=== PATIENT | female | born 1970 | race Caucasian/White ===

== ENCOUNTER 2018-10-29 06:29 | Day surgery (SDC) | payer OTHER, SELFPAY ==
--- NOTE | 2018-10-23 14:38 | EKG12_ITS ---
Test Reason : PRE-OP Blood Pressure : / mmHG Vent. Rate : 074 BPM Atrial Rate : 074 BPM P-R Int : 160 ms QRS Dur : 092 ms QT Int : 394 ms P-R-T Axes : 026 033 030 degrees QTc Int : 437 ms Normal sinus rhythm Normal ECG Confirmed by TERE MELGOZA, JOSESITO ([id number]), editorial project manager GOLD CHAPA ([id number]) on 10/26/2018 10:18:52 AM Referred By: Erika Peng Confirmed By:JOSESITO CARRANZA MD
[2018-10-23 16:56] LABS: Hematocrit 39.4 % (37-47); Hemoglobin 12.5 g/dl (12.0-15.0); Mean Corp Hgb Conc 31.7 g/gl (32-36); Mean Corpuscular Hgb 31.3 pg (27.0-32.0); Mean Corpuscular Volume 98.5 fL (81-99); Mean Platelet Vol. 10.9 fl (6.2-12.0); Platelet Count 251 K/mm3 (150-450); RBC Distribution Width CV 12.9 % (11.6-14.6); RBC Distribution Width SD 45.9 fl (35.1-43.9); White Blood Count 7.5 K/mm3 (4.4-11.0)
[2018-10-23 17:10] LABS: AST(SGOT) 10 U/L (15-37); Alanine Aminotransfer ALT/SGPT 23 U/L (13-56); Albumin, Serum 3.7 g/dL (3.2-5.0); Alkaline Phosphatase 60 U/L (45-117); Bilirubin, Direct 0.07 mg/dL (0.00-0.30); Globulin 2.8 g/dL (2.2-4.2); Protein, Total 6.5 g/dL (6.4-8.2)
[2018-10-23 17:18] LABS: Internal QC Validated? YES +Cl - CLEAR BKGD; Pregnancy, Urine Negative Negative
[2018-10-23 17:21] LABS: International Normalized Ratio 1.1; Prothrombin Time (Protime)PT. 13.8 SECONDS (11.7-14.9)
[2018-10-23 17:22] LABS: Partial Thromboplast Time 29.7 Seconds (24.1-36.2)
[2018-10-23 18:20] LABS: Scan Indicated on CBC? Y/N NO
[2018-10-29 07:01] VITALS: BP 126/73; PULSE 77; RESP 16; TEMP 37.1; O2SAT 100; BMI 29.9
[2018-10-29] MEDS: Celecoxib 200 MG Capsule 400 MG PO (07:09)
[2018-10-29] MEDS: Phenazopyridine 95 MG Tablet 190 MG PO (07:09)
[2018-10-29] MEDS: Acetaminophen 500 MG Tablet 1000 MG PO ×2 (07:09→13:30)
[2018-10-29] MEDS: Gabapentin 600 MG Tablet PO (07:09)
[2018-10-29] MEDS: Scopolamine 1mg/72hr Patch 1 PATCH TRANSDERM. (07:10)
[2018-10-29] MEDS: Enoxaparin 40 MG/0.4 ML Syringe SC (07:10)
[2018-10-29] MEDS: Lactated Ringers 1,000 ML 40 ML IV ×2 (07:15→13:31)
[2018-10-29 07:16] LABS: Bedside Glucose 82 mg/dL (70-110)
[2018-10-29] MEDS: Magnesium Sulfate 4gm/100mL 4 GM/100 ML IV.SOLN. IV (07:16)
--- NOTE | 2018-10-29 08:45 | HYST_PTH ---
PATIENT: HELENA RENNER LOC: [facility] [place] U#:[id number] AGE/SX: 48/F ROOM: RE10/29/[address]: Dr. Erika Peng MD : [id number] BED: DIS: 10/29/2018 SPEC #: [id number] RECD: 10/29/18 11:39 STATUS: SHERIF GERARDO #: [id number] FARSHAD: 10/29/18 08:[address]: Erika Peng DEPT: SURGICAL PATHOLOGY RECD BY: Mark Gonzalez ENTERED: 10/29/18 12:26 SP TYPE: HYSTERECT OTHR DR: Dr. Herminio Nichols MD Tissues: Uterus, NOS Procedures: Surgery Specimen Level V HEADER OPERATION: ERAS, hysterectomy, lap-assisted vaginal, salpingectomy PRE-OP DIAGNOSIS: Intramural uterine fibroid, dysmenorrhea, abnormal uterine bleeding, status post endometrial ablation TISSUE SUBMITTED: Uterus and bilateral fallopian tubes MICROSCOPIC DIAGNOSIS Uterus, hysterectomy: Cervix - nabothian cysts, squamous metaplasia and mild chronic inflammation and focal hyperkeratosis. Endometrium - weakly proliferative to inactive endometrium. Myometrium - adenomyosis. Right fallopian tube - no pathologic change. Left fallopian tube - benign paratubal cyst. AM:janett 10/30/18 MICROSCOPIC DESCRIPTION Slides are reviewed. GROSS DESCRIPTION Received in fixative is one container labeled with the patient's name and designated uterus and bilateral fallopian tubes. The specimen consists of a hysterectomy specimen consisting of uterus with cervix and detached bilateral fallopian tubes. The uterus with cervix weighs 137 gm and measures 10.5 x 8 x 5 cm. The serosal surface is feldman, glistening with instrumentation lantigua. The ectocervical mucosa is unremarkable. The external os is circular in contour. The endocervical canal measures 3 cm in length and the endocervical mucosa is feldman, glistening and unremarkable. Sections of the cervix reveal two cysts filled with mucoid material. The triangular endometrial cavity measures 5 cm in length and up to 1.5 cm in width. The endometrium is feldman, glistening without any mass lesion and measures <0.1 cm in thickness. Sections of the uterine wall do not reveal any mass lesion. It measures up to 2.6 cm I thickness. The detached fallopian tubes are not identified as right or left. One of the fallopian tubes is smaller and it measures 2.5 cm in length and up to 0.6 cm in diameter. A focal, minimal fimbrial end is noted. Sections reveal unremarkable cut surfaces. The second fallopian tube measures 4 cm in length and 0.5 cm in diameter. The fimbrial end is identified. A paratubal cyst is also noted measuring 0.5 cm in diameter. Sections reveal unremarkable cut surfaces. Project Development Director sections are submitted in eight cassettes as follows: 1 - anterior cervix, 2 - posterior cervix, 3 & 4 - anterior uterine wall, 5 & 6 - posterior uterine wall, 7 - smaller fallopian tube, 8 - larger fallopian tube and paratubal cyst. / ANGELITA:janett 10/29/18 TC:5 CPT: 36928
[2018-10-29] MEDS: Bupivacaine Mpf 0.5% 30 ML VIAL (11:00)
--- NOTE | 2018-10-29 11:06 | PCM.OPRPT ---
Report of Operation Date of Procedure: 10/29/18 Pre-Operative Diagnosis: Abnormal uterine bleeding, dysmenorrhea, intramural uterine fibroid Post-Operative Diagnosis: Same Surgery/Procedure Performed:: Upper scopic assisted vaginal hysterectomy with bilateral salpingectomy and cystoscopy Description of Surgical Findings:: Enlarged boggy uterus, normal tubes with evidence of previous tubal ligation, normal-appearing ovaries bilaterally. Ureteral duplication noted. clinique counter manager: Dinorah Agarwal clinique counter manager: branden Perry Type of Anesthesia:: General Anesthesiologist: Fernando Piper Special Medications: none Specimen's removed: Uterus, cervix bilateral tubes. Drains: none Estimated Blood Loss (mL): 50cc Fluids Replaced: 1200cc LR Description of Procedure: The patient was taken to the operating room where she was prepped and draped in the dorsal lithotomy position. Her arms were tucked to the side and padded and her legs were placed in the yellowfin stirrups. Care was taken to ensure that she was placed in a neurologically safe and neutral position. A weighted speculum was placed in the vagina and the anterior lip of the cervix was grasped with a single-tooth tenaculum. The uterus sounded to 8 cm centimeters. 2 ZUMI uterine manipulator was placed and the balloon was inflated. A cystoscopy was performed which was revealed ureteroceles and ureteral duplication. The scope was removed. A Polanco catheter was placed to straight drain. Attention was turned to the abdominal portion of the case. Before skin incisions were made they were infiltrated with 0.5% Marcaine solution for local anesthetic. A 5 mm intraumbilical incision was made and while tenting the anterior abdominal wall up with towel clamps a 5 mm blade less trocar and sleeve were advanced directly into the peritoneal cavity. Peritoneal placement was confirmed with the laparoscope the pneumoperitoneum was created, and the underlying abdominal contents were intact. The patient was placed in Trendelenburg and the above findings were noted. Right and left lateral 5 mm trochars were placed under direct visualization without difficulty. Bowel was swept out of the way and above findings were noted. It was noted that we could see 2 ureters on both sides peristalsing clearly. The antimesenteric portion of the tube was clamped sealed and transected serially on both sides with the LigaSure device. The round ligaments were clamped sealed and transected and a window was made in the peritoneum. The utero-ovarian ligaments were then clamped sealed and transected with the LigaSure device and the pedicles were hemostatic The bladder flap was dissected down with the LigaSure device and blunt dissection and the uterine arteries were then skeletonized. The uterine arteries were clamped sealed and transected on both sides with the LigaSure device. At this point the pedicles were all examined and found to be hemostatic. The bladder flap was rechecked and found to be adequately down. At this point the pedicles were hemostatic from above and attention was turned to the vaginal portion of the case again. The anterior colpotomy incision was made in the standard fashion. The lateral vaginal cuff angles were clamped, transected and suture-ligated. The bottom part of the cardinal ligament containing the uterine arteries was clamped, transected and suture-ligated. The uterus was then brought out through the anterior colpotomy incision and the uterosacral ligaments and vaginal cuff were then clamped, transected and the specimen was removed from the vagina. The uterosacral ligament pedicles were secured. Hemostasis was noted. The vaginal cuff was then reapproximated horizontal fashion with interrupted 0 Vicryl [id number] sutures. Care was taken to make sure that the vaginal cuff was secured to the uterosacral ligament pedicles. There is some bleeding from the left vaginal cuff angle and this was grasped with an Allis clamp. Vaginal angle sutures were placed on both sides with 0 Vicryl sutures and care was taken to ensure that the uterosacral ligament was secured into this stitch. The remainder the vagina was then closed horizontally with interrupted 0 Vicryl sutures. The cuff was hemostatic vaginally. The Polanco catheter was removed and a cystoscopy was performed. The bladder appeared normal and was intact. All 4 ureteral orifices were noted and both ureteral jets were seen. The cystoscope was removed and the Polanco catheter was placed back to straight drain. A sponge stick was placed in the vagina to help place traction against the vaginal cuff and the pneumoperitoneum was re-created. The pedicles were reexamined and found to be hemostatic. The vaginal cuff was hemostatic. Both ureters peristalsing again at the end of the case. The right and left lateral ports were taken out and the sites were hemostatic. The pneumoperitoneum was released and even under low pressure there was no bleeding of any of the pedicles are vaginal cuff. The umbilical port was removed. The umbilical skin incisions were closed with Monocryl suture and skin glue by Dr. Napier. The vaginal instruments were removed by me and a vaginal sweep was completed by me. The surgery was performed by me with assistance other than the portions dictated as above. There were no qualified residents available for this procedure. All sponge lap and needle counts were correct and the patient was transferred to the recovery room in stable condition. Grafts/Implants Used: none - Complications none - Admit VTE Documentation VTE Present on Admission: No VTE Mechan Device Prophylaxis: SCD's VTE Pharm Prophylaxis ordered?: Yes
--- NOTE | 2018-10-29 11:14 | OP.PCM_ITS ---
Report of Operation Date of Procedure: 10/29/18 Pre-Operative Diagnosis: Abnormal uterine bleeding, dysmenorrhea, intramural uterine fibroid Post-Operative Diagnosis: Same Surgery/Procedure Performed:: Upper scopic assisted vaginal hysterectomy with bilateral salpingectomy and cystoscopy Description of Surgical Findings:: Enlarged boggy uterus, normal tubes with evidence of previous tubal ligation, normal-appearing ovaries bilaterally. Ureteral duplication noted. electric shipyard operator: Dinorah Agarwal electric shipyard operator: branden Perry Type of Anesthesia:: General Anesthesiologist: Fernando Piper Special Medications: none Specimen's removed: Uterus, cervix bilateral tubes. Drains: none Estimated Blood Loss (mL): 50cc Fluids Replaced: 1200cc LR Description of Procedure: The patient was taken to the operating room where she was prepped and draped in the dorsal lithotomy position. Her arms were tucked to the side and padded and her legs were placed in the yellowfin stirrups. Care was taken to ensure that she was placed in a neurologically safe and neutral position. A weighted speculum was placed in the vagina and the anterior lip of the cervix was grasped with a single-tooth tenaculum. The uterus sounded to 8 cm centimeters. 2 ZUMI uterine manipulator was placed and the balloon was inflated. A cystoscopy was performed which was revealed ureteroceles and ureteral duplication. The scope was removed. A Polanco catheter was placed to straight drain. Attention was turned to the abdominal portion of the case. Before skin incisions were made they were infiltrated with 0.5% Marcaine solution for local anesthetic. A 5 mm intraumbilical incision was made and while tenting the anterior abdominal wall up with towel clamps a 5 mm blade less trocar and sleeve were advanced directly into the peritoneal cavity. Peritoneal placement was confirmed with the laparoscope the pneumoperitoneum was created, and the underlying abdominal contents were intact. The patient was placed in Trendelenburg and the above findings were noted. Right and left lateral 5 mm trochars were placed under direct visualization without difficulty. Bowel was swept out of the way and above findings were noted. It was noted that we could see 2 ureters on both sides peristalsing clearly. The antimesenteric portion of the tube was clamped sealed and transected serially on both sides with the LigaSure device. The round ligaments were clamped sealed and transected and a window was made in the peritoneum. The utero-ovarian ligaments were then clamped sealed and transected with the LigaSure device and the pedicles were hemostatic The bladder flap was dissected down with the LigaSure device and blunt dissection and the uterine arteries were then skeletonized. The uterine arteries were clamped sealed and transected on both sides with the LigaSure device. At this point the pedicles were all examined and found to be hemostatic. The bladder flap was rechecked and found to be adequately down. At this point the pedicles were hemostatic from above and attention was turned to the vaginal portion of the case again. The anterior colpotomy incision was made in the standard fashion. The lateral vaginal cuff angles were clamped, transected and suture-ligated. The bottom part of the cardinal ligament containing the uterine arteries was clamped, transected and suture-ligated. The uterus was then brought out through the anterior colpotomy incision and the uterosacral ligaments and vaginal cuff were then clamped, transected and the specimen was removed from the vagina. The uterosacral ligament pedicles were secured. Hemostasis was noted. The vaginal cuff was then reapproximated horizontal fashion with interrupted 0 Vicryl [id number] sutures. Care was taken to make sure that the vaginal cuff was secured to the uterosacral ligament pedicles. There is some bleeding from the left vaginal cuff angle and this was grasped with an Allis clamp. Vaginal angle sutures were placed on both sides with 0 Vicryl sutures and care was taken to ensure that the uterosacral ligament was secured into this stitch. The remainder the vagina was then closed horizontally with interrupted 0 Vicryl sutures. The cuff was hemostatic vaginally. The Polanco catheter was removed and a cystoscopy was performed. The bladder appeared normal and was intact. All 4 ureteral orifices were noted and both ureteral jets were seen. The cystoscope was removed and the Polanco catheter was placed back to straight drain. A sponge stick was placed in the vagina to help place traction against the vaginal cuff and the pneumoperitoneum was re-created. The pedicles were reexamined and found to be hemostatic. The vaginal cuff was hemostatic. Both ureters peristalsing again at the end of the case. The right and left lateral ports were taken out and the sites were hemostatic. The pneumoperitoneum was released and even under low pressure there was no bleeding of any of the pedicles are vaginal cuff. The umbilical port was removed. The umbilical skin incisions were closed with Monocryl suture and skin glue by Dr. Napier. The vaginal instruments were removed by me and a vaginal sweep w as completed by me. The surgery was performed by me with assistance other than the portions dictated as above. There were no qualified residents available for this procedure. All sponge lap and needle counts were correct and the patient was transferred to the recovery room in stable condition. Grafts/Implants Used: none - Complications none - Admit VTE Documentation VTE Present on Admission: No VTE Mechan Device Prophylaxis: [facility]'s VTE Pharm Prophylaxis ordered?: Yes
[2018-10-29 11:21] VITALS: BP 126/73; BP 93/57; PULSE 62; RESP 16; TEMP 36.4; O2SAT 97
[2018-10-29 11:30] VITALS: BP 126/73; BP 93/64; PULSE 65; RESP 18; O2SAT 97
[2018-10-29] MEDS: Ketorolac 30 MG/ML Syringe IV (11:42)
[2018-10-29 11:45] VITALS: BP 103/66; BP 126/73; PULSE 58; RESP 16; O2SAT 100
[2018-10-29 12:00] VITALS: BP 102/66; BP 126/73; PULSE 62; RESP 16; TEMP 36.2; O2SAT 100
[2018-10-29] MEDS: oxyCODONE 5 MG Tablet PO (13:13)
[2018-10-29 14:02] VITALS: BP 126/64; BP 126/73; PULSE 77; RESP 16; TEMP 36.7; O2SAT 97
--- NOTE | 2018-10-29 14:05 | DCINST_ITS ---
Discharge Diet: No Restrictions Discharge Activity: Return to Normal Activity, May Not Drive - while taking narcotic pain medications., May Shower May shower in (days): 1 May resume sexual activity in: 6-8 weeks Call your doctor if your incision/area has: Continuous Slow Oozing, Sudden Increased Bleeding, Increased Pain/ Swelling, Increased Redness, Foul Smelling Discharge Call your doctor if you observe: Fever of 101 or Higher, Inability to urinate, Inability to have a bowel movement, Using more than one pad per hour Cleanse incision/area with: Soap & Water Allergies/Adverse Reactions: Allergies bupropion [From Wellbutrin] Allergy (Verified 10/15/18 16:05) Hives Gadolinium-MRI Contrast Medium [MRI] Allergy (Verified 10/15/18 16:05) Shortness of breath hydrocodone [From Vicodin] Allergy (Verified 10/15/18 16:05) Itching Medications to take at Discharge Pravastatin [Pravachol] 10 mg PO QHS 10/15/18 Docusate Sodium [Colace] 100 mg PO BID PRN PRN #60 capsule 10/29/18 Ibuprofen [Motrin] 800 mg PO TID PRN PRN #60 tablet 10/29/18 Oxycodone HCl/Acetaminophen [Oxycodone-Acetaminophen 10-325] 1 each PO Q8H PRN PRN 7 Days #15 tablet 10/29/18 The following prescriptions were given: Oxycodone HCl/Acetaminophen [Oxycodone-Acetaminophen 10-325] 1 each PO Q8H PRN PRN 7 Days #15 tablet PRN Reason: Pain Docusate Sodium [Colace] 100 mg PO BID PRN PRN #60 capsule PRN Reason: constipation Ibuprofen [Motrin] 800 mg PO TID PRN PRN #60 tablet PRN Reason: Pain Orders to be completed after discharge: 12 Lead EKG [[facility]] Time Frame: 10/24/18, Location: None Selected Primary Care Physician: Herminio Nichols MD [Primary Care Provider] - Test Results: Test results from this visit will be discussed in further detail at your follow- up appointment, if applicable. Please Follow Up With: Erika Peng MD - [phone] When: 1-2 and 6 weeks or as needed
--- NOTE | 2018-10-29 14:05 | PCM.PN.OB ---
Subjective: pain well controlled. Mild nausea but shayla. some clears and crackers. Ambulated to bathroom and able to void. Desires d/c - Physical Exam General: Alert, Cooperative, No apparent distress Abdomen: Soft, Non-Distended, Tender - appropriately Vital Signs Temp Pulse Resp BP Pulse Ox 98.1 F 77 16 126/64 H 97 10/29/18 14:02 10/29/18 14:02 10/29/18 14:02 10/29/18 14:02 10/29/18 14:02 Oxygen Flow Rate (L/min) 6 Oxygen Delivery Method Room Air Weight: 78.5 kg Body Mass Index (BMI) 29.9 Intake and Output for Last 24 Hours 10/27/18 10/28/18 10/29/18 23:59 23:59 23:59 Intake Total 1700 / 1700 Balance 1700 / 1700 POC Glucose 10/29/18 06:58 POC Glucose 82 Medical Necessity - Tobacco Use Smoking Status: Current every day smoker Tobacco Use: Cigarettes Assessment/Plan POD#0 s/p LAVH, bilateral salpingectomy and cystoscopy doing well d/c home rxs sent
--- OUTSIDE RECORDS SUMMARY | 2019-01-02 18:55 | XMS RPT_ITS ---
:1970 Author Organization OHIP Care Team Providers Name Role Phone MAAME COLON Attending Unavailable AKIRA NICHOLS Referring Unavailable ALICIA CASTRO ([facility]) Attending Unavailable AKIRA NICHOLS Referring Unavailable ARTI BAUTISTA Attending Unavailable ALICIA CASTRO ([facility]) Referring Unavailable DEYANIRA COLON II Attending Unavailable DEJON RACHEL Attending Unavailable ALICIA CASTRO ([facility]) Referring Unavailable WILSON DEJON Tariq Attending Unavailable ALICIA CASTRO ([facility]) Attending Unavailable WILSON, DEJON L Attending Unavailable Wilson Dejon Attending Unavailable Wilson Dejon Referring Unavailable AKIRA NICHOLS Primary Care Unavailable PROBLEMS PROBLEMS DATE TYPE CONDITION / CODE ATTENDING STATUS SOURCE 10/29/2018 Unknown G89.18 - Other acute Chandu Rachel postprocedural pain Dejon Ruiz / G89.18(ICD-10) Hospital Repository 04/16/2018 Active Unknown / NA [facility] PROCEDURES PROCEDURES No Procedure Records FoundRESULTS RESULTS CNOV Observed: 11/06/2018 Status: COMPLETED Source: [place] 11:10 AM [facility] REPOSITORY Office Visit (WOOB) HELENA GUZMAN ([id number]) 1970 F Date Time Provider Department 11/06/18 11:10 AM DEJON RACHEL During your visit today, we recorded the following information about you: Blood pressure Weight 122/72 78 kg Dejon Rachel MD 11/06/2018 11:37 AM Signed DATE OF SERVICE: 11/06/2018 PROBLEM: Helena Guzman presents for postop visit. SURGERY AND DATE: LAVH, bilateral salpingectomy /. PATHOLOGY: benign, adenomyosis SUBJECTIVE/INTERVAL HISTORY: Helena Guzman reports that she feels average. Still taking some pain medication. No fever or chills. No shortness of breath, cough, or chest pain. No incisional redness, swelling, or drainage. Some bruising and edema Patient reports that her appetite is fair. Doesn't feel urgeto urinate but able to void ok since took catheter out on the . .Bms normal now OBJECTIVE: ABDOMEN: Abdomen soft, non-tender, no hepatosplenomegaly.some echymosis around incision incisions healing . ASSESSMENT: Postop LAVH, bilateral salpingectomy PLAN: 1. Discussed results of pathology and implications with patient. 2. Postop restrictions reviewed. Dejon Rachel MD Referring Provider: SELF [200] Allergies As of Date: 11/06/2018 Noted Allergy Reaction CONTRAST DYE 06/29/2008 7 - Swelling LANOLIN 08/16/2015 9 - Itching PREDNISONE 06/29/2008 4 - Hives VICODIN (HYDROCODONE-ACETAMINOPHE*09/07/2008 WELLBUTRIN (BUPROPION HCL) 06/29/2008 4 - Hives ZYBAN (BUPROPION (SMOKING DETER)) 06/29/2008 4 - Hives Date Reviewed: 11/06/2018 Reviewed by: Dejon Rachel - Fully Assessed Reason for Visit: Post Op [174] Primary Visit Diagnosis:Post-operative state [Z98.890] Prescriptions as of 11/06/2018 Sig: DOCUSATE SODIUM 100 MG CAPSULE TWICE DAILY NEEDED PRN For* ONDANSETRON HCL 8 MG TABLET SUMATRIPTAN 100 MG TABLET GABAPENTIN 300 MG CAPSULE as needed. ROSUVASTATIN 20 MG TABLET IBUPROFEN 200 MG TABLET Take 200 mg by mouth every 6 * PERCOCET 5 MG-325 MG TABLET Take one(1) tablet every four* Problem List As Of Date 11/06/2018 Noted Resolved MIXED HYPERLIPIDEMIA [E78.2] INVALID FOR* ANXIETY STATE NOS [F41.1] INVALID FOR* Cervical high risk HPV (human papillomavirus) t*INVALID FOR* Status post endometrial ablation [Z98.890] INVALID FOR*11/06/2018 Myopia - Both Eyes [H52.10] INVALID FOR* Regular astigmatism - Right Eye [H52.229] INVALID FOR* Presbyopia - Both Eyes [H52.4] INVALID FOR* Hordeolum internum of left lower eyelid [H00.02*INVALID FOR* Encounter Status:Closed by DEJON RACHEL MD on 11/06/18 PROGRESS Observed: 11/06/2018 Status: COMPLETED Source: [place] 11:09 AM [facility] REPOSITORY HNO ID: [id number] Author: Dejon Rachel Service: (none) Author Type: Physician Type: Progress Notes Filed: 11/06/2018 11:37 AM Note Text: DATE OF SERVICE: 11/06/2018 PROBLEM: Helena Guzman presents for postop visit. SURGERY AND DATE: LAVH, bilateral salpingectomy /. PATHOLOGY: benign, adenomyosis SUBJECTIVE/INTERVAL HISTORY: Helena Guzman reports that she feels average. Still taking some pain medication. No fever or chills. No shortness of breath, cough, or chest pain. No incisional redness, swelling, or drainage. Some bruising and edema Patient reports that her appetite is fair. Doesn't feel urgeto urinate but able to void ok since took catheter out on the . .Bms normal now OBJECTIVE: ABDOMEN: Abdomen soft, non-tender, no hepatosplenomegaly.some echymosis around incision incisions healing . ASSESSMENT: Postop LAVH, bilateral salpingectomy PLAN: 1. Discussed results of pathology and implications with patient. 2. Postop restrictions reviewed. Dejon Rachel MD PROGRESS Observed: 10/30/2018 Status: COMPLETED Source: [place] 4:32 PM [facility] REPOSITORY HNO ID: [id number] Author: Dejon Rachel Service: (none) Author Type: Physician Type: Progress Notes Filed: 10/30/2018 4:36 PM Note Text: Patient is here postoperative day #1 status post laparoscopic-assisted vaginal hysterectomy with bilateral salpingectomy and cystoscopy. She was discharged home yesterday and did well except for she's been able to void except for small amounts. She has to strain to void. When she arrived to the office she was able to void 75 cc in a hat with some effort. She denies any nausea or vomiting. She's had no significant vaginal bleeding. She ninth any fevers, chills, shortness of breath, chest pain, lightheadedness or dizziness. Complains of some right shoulder pain has been using heat for this. Physical exam: Gen.: Awake, alert, no acute distress, appropriate affect Abdomen: Soft, nondistended, appropriately tender. No rebound or guarding. Incisions are clean dry and intact. 14 Maori Polanco placed in the urethra under usual sterile fashion and the balloon was inflated with 10 cc of normal saline. 350 cc of straw-colored urine returned. Urinalysis was negative except for trace blood. Assessment and plan: 48-year-old female postoperative day #1 status post laparoscopic-assisted vaginal hysterectomy and bilateral salpingectomy with urinary retention. Nursing gave patient instructions on catheterization care. Will have patient leave the catheter in until in 2019 in the evening and then she can cut the catheter and remove it. She can call the office on 11/02/2018 to let us know how she is doing. She is comfortable with plan. Dejon Rachel M.D. PROGRESS Observed: 10/30/2018 Status: COMPLETED Source: [place] 1:35 PM [facility] REPOSITORY HNO ID: [id number] Author: Dejon Rachel Service: (none) Author Type: Physician Type: Progress Notes Filed: 10/30/2018 1:38 PM Note Text: Patient had LAVH, bilateral salpingectomy and cystoscopy at [facility] for menorrhagia, uterine fibroid and dysmenorrhea. She was d/marcial home same day. EBL 50 cc. Dejon Rachel MD CNOV Observed: 10/30/2018 Status: COMPLETED Source: [place] 12:45 PM [facility] REPOSITORY Office Visit (WOOB) HELENA GUZMAN ([id number]) 1970 F Date Time Provider Department 10/30/18 12:45 PM DEJON RACHEL WOOB During your visit today, we recorded the following information about you: Temperature Pulse Respiration Weight 98.3 degrees 70/minute 14/minute 80.6 kg Dejon Rachel MD 10/30/2018 4:36 PM Signed Patient is here postoperative day #1 status post laparoscopic- assisted vaginal hysterectomy with bilateral salpingectomy and cystoscopy. She was discharged home yesterday and did well except for she's been able to void except for small amounts. She has to strain to void. When she arrived to the office she was able to void 75 cc in a hat with some effort. She denies any nausea or vomiting. She's had no significant vaginal bleeding. She ninth any fevers, chills, shortness of breath, chest pain, lightheadedness or dizziness. Complains of some right shoulder pain has been using heat for this. Physical exam: Gen.: Awake, alert, no acute distress, appropriate affect Abdomen: Soft, nondistended, appropriately tender. No rebound or guarding. Incisions are clean dry and intact. 14 Maori Polanco placed in the urethra under usual sterile fashion and the balloon was inflated with 10 cc of normal saline. 350 cc of straw-colored urine returned. Urinalysis was negative except for trace blood. Assessment and plan: 48-year-old female postoperative day #1 status post laparoscopic-assisted vaginal hysterectomy and bilateral salpingectomy with urinary retention. Nursing gave patient instructions on catheterization care. Will have patient leave the catheter in until in 2019 in the evening and then she can cut the catheter and remove it. She can call the office on 11/02/2018 to let us know how she is doing. She is comfortable with plan. Dejon Rachel M.D. Referring Provider: SELF [200] Allergies As of Date: 10/30/2018 Noted Allergy Reaction CONTRAST DYE 06/29/2008 7 - Swelling LANOLIN 08/16/2015 9 - Itching PREDNISONE 06/29/2008 4 - Hives VICODIN (HYDROCODONE-ACETAMINOPHE*09/07/2008 WELLBUTRIN (BUPROPION HCL) 06/29/2008 4 - Hives ZYBAN (BUPROPION (SMOKING DETER)) 06/29/2008 4 - Hives Date Reviewed: 10/30/2018 Reviewed by: Viridiana Howell LPN - Fully Assessed Reason for Visit: Post Op [174] Cmt: PVR difficulty voiding this am Primary Visit Diagnosis:Urinary frequency [R35.0] Other Visit Diagnoses:Postop check [Z09] Acute retention of urine [R33.8] Order(s):UA DIP B/O [[id number]] Order #: [id number] UA DIP, URINE (POC) [[id number]] Order #: [id number] #:[id number] Prescriptions as of 10/30/2018 Sig: GABAPENTIN 300 MG CAPSULE as needed. ROSUVASTATIN 20 MG TABLET IBUPROFEN 200 MG TABLET Take 200 mg by mouth every 6 * PERCOCET 5 MG-325 MG TABLET Take one(1) tablet every four* Problem List As Of Date 10/30/2018 Noted Resolved MIXED HYPERLIPIDEMIA [E78.2] INVALID FOR* ANXIETY STATE NOS [F41.1] INVALID FOR* Cervical high risk HPV (human papillomavirus) t*INVALID FOR* Status post endometrial ablation [Z98.890] INVALID FOR* Myopia - Both Eyes [H52.10] INVALID FOR* Regular astigmatism - Right Eye [H52.229] INVALID FOR* Presbyopia - Both Eyes [H52.4] INVALID FOR* Hordeolum internum of left lower eyelid [H00.02*INVALID FOR* Encounter Status:Closed by DEJON RACHEL MD on 10/30/18 DISCHARGE INSTRUCTION Observed: 10/29/2018 Status: F Source: [place] 2:05 PM REPOSITORY [facility] Medical Records Department [address] [place] [address] Instructions for Home/Discharge Instructions 10/29/18 1404 MR#: [id number] Acct: [id number] Name: HELENA GUZMAN Rep #: [id number] : 1970 48 From: Dejon Rachel MD PCP: Akira Nichols MD Status: REG SDC Discharge Diet: No Restrictions Discharge Activity: Return to Normal Activity, May Not Drive - while taking narcotic pain medications., May Shower May shower in (days): 1 May resume sexual activity in: 6-8 weeks Call your doctor if your incision/area has: Continuous Slow Oozing, Sudden Increased Bleeding, Increased Pain/ Swelling, Increased Redness, Foul Smelling Discharge Call your doctor if you observe: Fever of 101 or Higher, Inability to urinate, Inability to have a bowel movement, Using more than one pad per hour Cleanse incision/area with: Soap AND Water Allergies/Adverse Reactions: Allergies bupropion [From Wellbutrin] Allergy (Verified 10/15/18 16:05) Hives Gadolinium-MRI Contrast Medium [MRI] Allergy (Verified 10/15/18 16:05) Shortness of breath hydrocodone [From Vicodin] Allergy (Verified 10/15/18 16:05) Itching Medications to take at Discharge Pravastatin [Pravachol] 10 mg PO QHS 10/15/18 Docusate Sodium [Colace] 100 mg PO BID PRN PRN #60 capsule 10/29/18 Ibuprofen [Motrin] 800 mg PO TID PRN PRN #60 tablet 10/29/18 Oxycodone HCl/Acetaminophen [Oxycodone-Acetaminophen 10-325] 1 each PO Q8H PRN PRN 7 Days #15 tablet 10/29/18 The following prescriptions were given: Oxycodone HCl/Acetaminophen [Oxycodone-Acetaminophen 10-325] 1 each PO Q8H PRN PRN 7 Days #15 tablet PRN Reason: Pain Docusate Sodium [Colace] 100 mg PO BID PRN PRN #60 capsule PRN Reason: constipation Ibuprofen [Motrin] 800 mg PO TID PRN PRN #60 tablet PRN Reason: Pain Orders to be completed after discharge: 12 Lead EKG [[facility]] Time Frame: 10/24/18, Location: None Selected Primary Care Physician: Akira Nichols MD [Primary Care Provider] - Test Results: Test results from this visit will be discussed in further detail at your follow-up appointment, if applicable. Please Follow Up With: Dejon Rachel MD - [phone] When: 1-2 and 6 weeks or as needed 10/29/18 7616 <Electronically signed by Dejon Rachel MD> Date Dejon Rachel MD CC: Akira Nichols MD Signed OPERATIVE REPORT Observed: 10/29/2018 Status: F Source: [place] 11:14 AM REPOSITORY [facility] Medical Records Department [address] [place] [address] Operative Report 10/29/18 1106 MR#: [id number] Acct: [id number] Name: HELENA GUZMAN Rep #: [id number] : 1970 48 From: Dejno Rachel MD PCP: Akira Nichols MD Status: [place] [facility] [place] Location: [place] [address] Report of Operation Date of Procedure: 10/29/18 Pre-Operative Diagnosis: Abnormal uterine bleeding, dysmenorrhea, intramural uterine fibroid Post-Operative Diagnosis: Same Surgery/Procedure Performed:: Upper scopic assisted vaginal hysterectomy with bilateral salpingectomy and cystoscopy Description of Surgical Findings:: Enlarged boggy uterus, normal tubes with evidence of previous tubal ligation, normal-appearing ovaries bilaterally. Ureteral duplication noted. shoe packer: Arti Agarwal shoe packer: branden Perry Type of Anesthesia:: General Anesthesiologist: Fernando Piper Special Medications: none Specimen's removed: Uterus, cervix bilateral tubes. Drains: none Estimated Blood Loss (mL): 50cc Fluids Replaced: 1200cc LR Description of Procedure: The patient was taken to the operating room where she was prepped and draped in the dorsal lithotomy position. Her arms were tucked to the side and padded and her legs were placed in the yellowfin stirrups. Care was taken to ensure that she was placed in a neurologically safe and neutral position. A weighted speculum was placed in the vagina and the anterior lip of the cervix was grasped with a single-tooth tenaculum. The uterus sounded to 8 cm centimeters. 2 ZUMI uterine manipulator was placed and the balloon was inflated. A cystoscopy was performed which was revealed ureteroceles and ureteral duplication. The scope was removed. A Polanco catheter was placed to straight drain. Attention was turned to the abdominal portion of the case. Before skin incisions were made they were infiltrated with 0.5% Marcaine solution for local anesthetic. A 5 mm intraumbilical incision was made and while tenting the anterior abdominal wall up with towel clamps a 5 mm blade less trocar and sleeve were advanced directly into the peritoneal cavity. Peritoneal placement was confirmed with the laparoscope the pneumoperitoneum was created, and the underlying abdominal contents were intact. The patient was placed in Trendelenburg and the above findings were noted. Right and left lateral 5 mm trochars were placed under direct visualization without difficulty. Bowel was swept out of the way and above findings were noted. It was noted that we could see 2 ureters on both sides peristalsing clearly. The antimesenteric portion of the tube was clamped sealed and transected serially on both sides with the LigaSure device. The round ligaments were clamped sealed and transected and a window was made in the peritoneum. The utero-ovarian ligaments were then clamped sealed and transected with the LigaSure device and the pedicles were hemostatic The bladder flap was dissected down with the LigaSure device and blunt dissection and the uterine arteries were then skeletonized. The uterine arteries were clamped sealed and transected on both sides with the LigaSure device. At this point the pedicles were all examined and found to be hemostatic. The bladder flap was rechecked and found to be adequately down. At this point the pedicles were hemostatic from above and attention was turned to the vaginal portion of the case again. The anterior colpotomy incision was made in the standard fashion. The lateral vaginal cuff angles were clamped, transected and suture-ligated. The bottom part of the cardinal ligament containing the uterine arteries was clamped, transected and suture-ligated. The uterus was then brought out through the anterior colpotomy incision and the uterosacral ligaments and vaginal cuff were then clamped, transected and the specimen was removed from the vagina. The uterosacral ligament pedicles were secured. Hemostasis was noted. The vaginal cuff was then reapproximated horizontal fashion with interrupted 0 Vicryl [id number] sutures. Care was taken to make sure that the vaginal cuff was secured to the uterosacral ligament pedicles. There is some bleeding from the left vaginal cuff angle and this was grasped with an Allis clamp. Vaginal angle sutures were placed on both sides with 0 Vicryl sutures and care was taken to ensure that the uterosacral ligament was secured into this stitch. The remainder the vagina was then closed horizontally with interrupted 0 Vicryl sutures. The cuff was hemostatic vaginally. The Polanco catheter was removed and a cystoscopy was performed. The bladder appeared normal and was intact. All 4 ureteral orifices were noted and both ureteral jets were seen. The cystoscope was removed and the Polanco catheter was placed back to straight drain. A sponge stick was placed in the vagina to help place traction against the vaginal cuff and the pneumoperitoneum was re-created. The pedicles were reexamined and found to be hemostatic. The vaginal cuff was hemostatic. Both ureters peristalsing again at the end of the case. The right and left lateral ports were taken out and the sites were hemostatic. The pneumoperitoneum was released and even under low pressure there was no bleeding of any of the pedicles are vaginal cuff. The umbilical port was removed. The umbilical skin incisions were closed with Monocryl suture and skin glue by Dr. Napier. The vaginal instruments were removed by me and a vaginal sweep was completed by me. The surgery was performed by me with assistance other than the portions dictated as above. There were no qualified residents available for this procedure. All sponge lap and needle counts were correct and the patient was transferred to the recovery room in stable condition. Grafts/Implants Used: none - Complications none - Admit VTE Documentation VTE Present on Admission: No VTE Mechan Device Prophylaxis: SCD's VTE Pharm Prophylaxis ordered?: Yes 10/29/18 1114 <Electronically signed by Dejon Rachel MD> Date Dejon Rachel MD CC: Akira Nichols MD; Dejon Rachel MD Signed HYSTERECTOMY SPECIMEN Observed: 10/29/2018 Status: F Source: [place] 8:45 AM REPOSITORY Patient: HELENA GUZMAN : 1970 (48/F) Acct Num: [id number] Phys: Wilson MELGOZA,Dejon Unit Num: [id number] [place] [facility] [place] Specimen: [id number] Received: 10/29/181138 Spec Type: HYSTERECT TISSUES 1 TISSUES: Uterus, NOS GROSS DESCRIPTION Received in fixative is one container labeled with the patient's name and designated uterus and bilateral fallopian tubes. The specimen consists of a hysterectomy specimen consisting of uterus with cervix and detached bilateral fallopian tubes. The uterus with cervix weighs 137 gm and measures 10.5 x 8 x 5 cm. The serosal surface is feldman, glistening with instrumentation lantigua. The ectocervical mucosa is unremarkable. The external os is circular in contour. The endocervical canal measures 3 cm in length and the endocervical mucosa is feldman, glistening and unremarkable. Sections of the cervix reveal two cysts filled with mucoid material. The triangular endometrial cavity measures 5 cm in length and up to 1.5 cm in width. The endometrium is feldman, glistening without any mass lesion and measures <0.1 cm in thickness. Sections of the uterine wall do not reveal any mass lesion. It measures up to 2.6 cm I thickness. The detached fallopian tubes are not identified as right or left. One of the fallopian tubes is smaller and it measures 2.5 cm in length and up to 0.6 cm in diameter. A focal, minimal fimbrial end is noted. Sections reveal unremarkable cut surfaces. The second fallopian tube measures 4 cm in length and 0.5 cm in diameter. The fimbrial end is identified. A paratubal cyst is also noted measuring 0.5 cm in diameter. Sections reveal unremarkable cut surfaces. Machine Tool Operator sections are submitted in eight cassettes as follows: 1 - anterior cervix, 2 - posterior cervix, 3 AND 4 - anterior uterine wall, 5 AND 6 - posterior uterine wall, 7 - smaller fallopian tube, 8 - larger fallopian tube and paratubal cyst. / SJ:janett 10/29/18 TC:5 CPT: 04393 HEADER OPERATION: ERAS, hysterectomy, lap-assisted vaginal, salpingectomy PRE-OP DIAGNOSIS: Intramural uterine fibroid, dysmenorrhea, abnormal uterine bleeding, status post endometrial ablation TISSUE SUBMITTED: Uterus and bilateral fallopian tubes MICROSCOPIC DESCRIPTION Slides are reviewed. MICROSCOPIC DIAGNOSIS Uterus, hysterectomy: Cervix - nabothian cysts, squamous metaplasia and mild chronic inflammation and focal hyperkeratosis. Endometrium - weakly proliferative to inactive endometrium. Myometrium - adenomyosis. Right fallopian tube - no pathologic change. Left fallopian tube - benign paratubal cyst. AM:janett 10/30/18 Signed Reynaldo Montgomery DO 10/30/18 <signature on file> Performed By: #### PHYST #### [facility] [address] [place], [address] BEDSIDE GLUCOSE Collected: 10/29/2018 Status: F Source: [place] 6:58 AM REPOSITORY TYPE CODE TESTS RESULT OUT OF RANGE REFERENCE UNITS LAB L501.080 70-110 mg/dL Normal BEDSIDE GLU 82 Result Comment: MANAGEMENT OF PATIENT CARE PER NURSING PROTOCOL Performed By: #### L501.080 #### [facility] Point of Care [address] [facility] [place] [address] CNOP Observed: 10/29/2018 Status: COMPLETED Source: [place] 12:00 AM [facility] REPOSITORY Operative Note (Enc) (WOOB) Progress Notes: Dejon Rachel MD 10/30/2018 1:38 PM Signed Patient had LAVH, bilateral salpingectomy and cystoscopy at [facility] for menorrhagia, uterine fibroid and dysmenorrhea. She was d/marcial home same day. EBL 50 cc. Dejon Rachel MD Encounter Status:Closed by DEJON RACHEL MD on 10/30/18 12 LEAD ELECTROCARDIOGRAM Observed: 10/26/2018 Status: F Source: [place] 10:19 AM REPOSITORY [facility] Cardiovascular Services [address] [place] [address] 12 Lead EKG 10/23/18 1446 MR#: [id number] Acct: [id number] Name: HELENA GUZMAN Tariq Rep #: [id number] : 1970 48 From: Bill Carranza MD Attending Dr: Dejon Rachel MD Status: PRE NEC Ordering Dr: Dejon Rachel MD Date: 10/23/18 [place] [facility] [place]: F C Admitted: Test Reason : PRE-OP Blood Pressure : / mmHG Vent. Rate : 074 BPM Atrial Rate : 074 BPM P-R Int : 160 ms QRS Dur : 092 ms QT Int : 394 ms P-R-T Axes : 026 033 030 degrees QTc Int : 437 ms Normal sinus rhythm Normal ECG Confirmed by TERE MELGOZA, BILL ([id number]), editor newspaper [employer] ([id number]) on 10/26/2018 10:18:52 AM Referred By: Dejon Rachel Confirmed By:BILL CARRANZA MD 10/26/18 1018 Date Bill Carranza MD CC: Akira Nichols MD; Dejon Rachel MD Signed TYPE AND SCREEN Collected: 10/23/2018 Status: F Source: [place] 3:03 PM REPOSITORY Order Comment: Surgery Date: 10/29/18 Hx of Preganancy in last 3 Months No Ever experience any problems with transfusion(s)? N Hx of Transfusion in last 3 Months N Reason for Type AND Screen/Red Cells: SURGERY SURGICAL PROCEDURE: LAVH TYPE CODE TESTS RESULT OUT OF RANGE REFERENCE UNITS LAB B10.0800 O Normal BLOOD TYPE GEL NEGATIVE LAB B100.4000 Normal Antibody NEGATIVE Screen Performed By: #### B101.7475 #### [facility] [address] [place], [address] LIVER PROFILE Collected: 10/23/2018 Status: F Source: [place] 3:00 PM REPOSITORY Order Comment: Reason for Laboratory Test PREOP TYPE CODE TESTS RESULT OUT OF RANGE REFERENCE UNITS LAB L501.1500 6.4-8.2 g/dL Normal T PROT 6.5 LAB L501.1800 3.2-5.0 g/dL Normal ALB 3.7 LAB L501.1950 2.2-4.2 g/dL Normal GLOB 2.8 LAB L501.4100 15-37 U/L Low AST 10 LAB L501.4305 45-117 U/L Normal ALK P 60 LAB L501.4405 13-56 U/L Normal ALT 23 LAB L501.4600 0.20-1.00 mg/dL Normal T BILI 0.20 LAB L501.4700 0.00-0.30 mg/dL Normal D BILI 0.07 Performed By: #### L500.3400 #### [facility] [address] [place], [place], [address] ,URINE Collected: 10/23/2018 Status: F Source: [place] 3:00 PM REPOSITORY TYPE CODE TESTS RESULT OUT OF REFERENCE UNITS RANGE LAB L400.8000 Negative Normal HCGUQUAL Negative Result Comment: Very dilute urine specimens, as indicated by a low specific gravity, may not contain dermatology sales representative levels of hCG. If is still suspected, a first morning urine specimen should be collected 48 hours later and tested. Performed By: #### L400.7600 #### [facility] [place], [place], [address] PROTHROMBIN TIME W/INR Collected: 10/23/2018 Status: F Source: [place] 3:00 PM REPOSITORY Order Comment: Reason for Laboratory Test PREOP TYPE CODE TESTS RESULT OUT OF RANGE REFERENCE UNITS LAB L300.4150 11.7-14.9 SECONDS Normal PROTIME 13.8 LAB L300.4200 Normal INR 1.1 Performed By: #### L300.3900, L300.4310 #### [facility] [address] [place], [address] PARTIAL THROMBOPLAST Collected: 10/23/2018 Status: F Source: [place] TIME 3:00 PM REPOSITORY Order Comment: Reason for Laboratory Test PREOP TYPE CODE TESTS RESULT OUT OF RANGE REFERENCE UNITS LAB L300.4310 24.1-36.2 Seconds Normal PTT 29.7 Performed By: #### L300.3900, L300.4310 #### [facility] [address] [place], [place], [address] CBC-COMPLETE BLOOD CNT Collected: 10/23/2018 Status: F Source: [place] NO [place]FF 3:00 PM REPOSITORY Order Comment: Reason for Laboratory Test PREOP TYPE CODE TESTS RESULT OUT OF RANGE REFERENCE UNITS LAB L100.1000 4.4-11.0 K/mm3 Normal WBC 7.5 LAB L100.1200 4.2-5.4 M/mm3 Low RBC 4.00 LAB L100.1300 12.0-15.0 g/dl Normal HGB 12.5 LAB L100.1400 37-47 % Normal HCT 39.4 LAB L100.1500 81-99 fL Normal MCV 98.5 LAB L100.1600 27.0-32.0 pg Normal MCH 31.3 LAB L100.1700 32-36 g/gl Low MCHC 31.7 LAB L100.1810 11.6-14.6 % Normal RDW CV 12.9 LAB L100.1820 35.1-43.9 fl High RDW SD 45.9 LAB L100.1900 150-450 K/mm3 Normal PLT 251 LAB L100.2000 6.2-12.0 fl Normal MPV 10.9 Performed By: #### L100.0500 #### [facility] [address] [place], [place], [address] HISTORY PHYSICAL Observed: 10/19/2018 Status: COMPLETED Source: [place] 4:38 PM [facility] REPOSITORY HNO ID: [id number] Author: Dejon Rachel Service: (none) Author Type: Physician Type: HANDP Filed: 10/19/2018 5:04 PM Note Text: Pre-Op History and Physical HPI: The patient is a 48 year old female presenting for pre-operative visit. She is scheduled for LAVH, bilateral salpingectomy, cystoscopy, for AUB, dysmenorrhea, intramural uterine fibroid on 10/29/18. Procedure discussed along with risks, benefits and complications. Other alternatives discussed for management. Consent form signed? Yes. PAST MEDICAL HISTORY Diagnosis Date - Anxiety state, unspecified 06/29/2008 - Migraine headache - Mixed hyperlipidemia 06/29/2008 - Spinal stenosis, other than cervical PAST SURGICAL HISTORY Procedure Laterality Date - DELIVERY ONLY , low cervical x 3 - LIGATE FALLOPIAN TUBE Tubal ligation - SULEIMAN 2007 - PAST SURGICAL HISTORY OF back surgery - REMOVAL OF TONSILS,<12 Y/O Tonsillectomy Current Outpatient Prescriptions: gabapentin (NEURONTIN) 300 mg capsule as needed. Disp: Rfl: rosuvastatin (CRESTOR) 20 mg tablet Disp: Rfl: ibuprofen (IBUPROFEN IB) 200 mg tablet Take 200 mg by mouth every 6 hours as needed. Disp: Rfl: oxycodone hcl/acetaminophen(PERCOCET 5 MG-325 MG TAB) Take one(1) tablet every four(4) to six(6) hours as needed for pain. Disp: 30 Rfl: 0 No current facility-administered medications for this visit. 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 - other (Other) Father - Cervical Cancer Sister - Diabetes Maternal Grandmother - Diabetes Maternal Grandfather - Cancer Maternal Grandfather from lung cancer - Diabetes Paternal Grandmother - Cancer Paternal Grandfather throat REVIEW OF SYMPTOMS: GENERAL: denies fevers or chills ENDOCRINOLOGY: has not been on steroids Cardiology : denies palpitations or chest pain Respiratory: denies SOB or cough Hematology: denies history of prolonged bleeding or easy bruising or VTE Allergy: Denies history of personal or family history of allergy to anesthesia PHYSICAL EXAMINATION: VITALS: There were no vitals taken for this visit. GENERAL: The patient is well nourished, well hydrated in no acute distress. , The patient is oriented to time, place, and person. NECK: Supple. No lynphadenopathy, normal thyroid, no thyromegaly. LUNGS: Clear to auscultation bilaterally. no wheezes, rhonchi or rales HEART: Regular rate and rhythm, Normal heart sounds and No murmurs or gallops PAP 04/16/18 neg w/ neg HRHPV EMB- not done due to s/p endometrial abaltion Pelvic US 04/24/18: Report Summary: Overall impression: Uterus with 4cm intramural fibroid and a small cystic sturcture located intramural as well. Endometrial thickness of 14.9mm. Right ovary with Small 2cm simple appearing cyst Left ovary with small 2cm mildly complex cyst - septation present Bladder - Prominent ureteroceles present- pt does reports history of double ureters no free fluid present. Follow- up: f/u as clinically indicated. _ Indication: Pelvic pain: abnormal bleeding. _ History: Last menstrual period: 04/09/2018. 16th day of cycle. Gynecological History: Past gynecological operations: ablation. _ Gynecological Ultrasonography: Uterus: anteverted. Size: Longitudinal 908 mm. Anterio- posterior 44 mm. Transverse 66 mm. Volume: 1380.6 ml. Fibroids: Fibroid 1: Size: 41 mm x 29 mm x 40 mm. Type: anterior. Position: mid-uterus. Structure inhomogeneous. Endometrium thickness total: 14.3 mm. Comment: [id number] hypoechoic area in right lateral wall of uterus. Right Ovary: normal. Visible. Outline: smooth. Morphology: normal morphology. Right Ovary size: 40 mm x 33 mm x 23 mm. Volume: 15.9 ml. Cysts Right Ovary: Cyst 1: Mean value: 22 mm. D1: 24 mm. D2: 18 mm. D3: 24 mm. Volume: 5 ml. Simple cyst. Left Ovary: visible. Outline: smooth. Morphology: normal morphology. Left Ovary size: 38 mm x 24 mm x 23 mm. Volume: 11.0 ml. Cysts Left Ovary: Cyst 1: Mean value: 20 mm. D1: 22 mm. D2: 19 mm. D3: 19 mm. Volume: 4 ml. Complex cyst. Bladder / Kidneys: bilateral ureteroceles, hx bilateral duplex ureters. Cul de Sac / Pouch of Jimmy: no free fluid visible. IMPRESSION: Intramural uterine fibroid, dysmenorrhea, AUB, s/p endometrial ablation PLAN: The risks/benefits/alternatives and personal involved for the planned LAVH, bilateral salpingectomy and cystoscopy, possible conversion to open procedure were reviewed with the patient. Her questions were answered to her satisfaction and she desires to proceed. Consent was signed. I reviewed with her postop instructions and expectations. Will plan to do a cystoscopy before hysterectomy as has h/o ureteral duplication but on CT report it is not specified how many ureters or if duplication on one or both sides. I have reviewed and updated past medical and surgical history, medications and allergies Berto LaceyOV Observed: 10/19/2018 Status: COMPLETED Source: [place] 4:20 PM [facility] REPOSITORY Office Visit (WOOB) HELENA GUZMAN ([id number]) 1970 F Date Time Provider Department 10/19/18 4:20 PM DEJON RACHEL WOOB During your visit today, we recorded the following information about you: Pulse Respiration Blood pressure Weight 80/minute 16/minute 138/88 77.6 kg Height 1.619 m Dejon Rachel MD 10/19/2018 5:04 PM Signed Pre-Op History and Physical HPI: The patient is a 48 year old female presenting for pre- operative visit. She is scheduled for LAVH, bilateral salpingectomy, cystoscopy, for AUB, dysmenorrhea, intramural uterine fibroid on 10/29/18. Procedure discussed along with risks, benefits and complications. Other alternatives discussed for management. Consent form signed? Yes. PAST MEDICAL HISTORY Diagnosis Date - Anxiety state, unspecified 06/29/2008 - Migraine headache - Mixed hyperlipidemia 06/29/2008 - Spinal stenosis, other than cervical PAST SURGICAL HISTORY Procedure Laterality Date - DELIVERY ONLY , low cervical x 3 - LIGATE FALLOPIAN TUBE Tubal ligation - SULEIMAN 2007 - PAST SURGICAL HISTORY OF back surgery - REMOVAL OF TONSILS,<12 Y/O Tonsillectomy Current Outpatient Prescriptions: gabapentin (NEURONTIN) 300 mg capsule as needed. Disp: Rfl: rosuvastatin (CRESTOR) 20 mg tablet Disp: Rfl: ibuprofen (IBUPROFEN IB) 200 mg tablet Take 200 mg by mouth every 6 hours as needed. Disp: Rfl: oxycodone hcl/acetaminophen(PERCOCET 5 MG-325 MG TAB) Take one(1) tablet every four(4) to six(6) hours as needed for pain. Disp: 30 Rfl: 0 No current facility-administered medications for this visit. 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 - other (Other) Father - Cervical Cancer Sister - Diabetes Maternal Grandmother - Diabetes Maternal Grandfather - Cancer Maternal Grandfather from lung cancer - Diabetes Paternal Grandmother - Cancer Paternal Grandfather throat REVIEW OF SYMPTOMS: GENERAL: denies fevers or chills ENDOCRINOLOGY: has not been on steroids Cardiology : denies palpitations or chest pain Respiratory: denies SOB or cough Hematology: denies history of prolonged bleeding or easy bruising or VTE Allergy: Denies history of personal or family history of allergy to anesthesia PHYSICAL EXAMINATION: VITALS: There were no vitals taken for this visit. GENERAL: The patient is well nourished, well hydrated in no acute distress. , The patient is oriented to time, place, and person. NECK: Supple. No lynphadenopathy, normal thyroid, no thyromegaly. LUNGS: Clear to auscultation bilaterally. no wheezes, rhonchi or rales HEART: Regular rate and rhythm, Normal heart sounds and No murmurs or gallops PAP 04/16/18 neg w/ neg HRHPV EMB- not done due to s/p endometrial abaltion Pelvic US 04/24/18: Report Summary: Overall impression: Uterus with 4cm intramural fibroid and a small cystic sturcture located intramural as well. Endometrial thickness of 14.9mm. Right ovary with Small 2cm simple appearing cyst Left ovary with small 2cm mildly complex cyst - septation present Bladder - Prominent ureteroceles present- pt does reports history of double ureters no free fluid present. Follow- up: f/u as clinically indicated. Indication: Pelvic pain: abnormal bleeding. History: Last menstrual period: 04/09/2018. 16th day of cycle. Gynecological History: Past gynecological operations: ablation. Gynecological Ultrasonography: Uterus: anteverted. Size: Longitudinal 908 mm. Anterio- posterior 44 mm. Transverse 66 mm. Volume: 1380.6 ml. Fibroids: Fibroid 1: Size: 41 mm x 29 mm x 40 mm. Type: anterior. Position: mid-uterus. Structure inhomogeneous. Endometrium thickness total: 14.3 mm. Comment: [id number] hypoechoic area in right lateral wall of uterus. Right Ovary: normal. Visible. Outline: smooth. Morphology: normal morphology. Right Ovary size: 40 mm x 33 mm x 23 mm. Volume: 15.9 ml. Cysts Right Ovary: Cyst 1: Mean value: 22 mm. D1: 24 mm. D2: 18 mm. D3: 24 mm. Volume: 5 ml. Simple cyst. Left Ovary: visible. Outline: smooth. Morphology: normal morphology. Left Ovary size: 38 mm x 24 mm x 23 mm. Volume: 11.0 ml. Cysts Left Ovary: Cyst 1: Mean value: 20 mm. D1: 22 mm. D2: 19 mm. D3: 19 mm. Volume: 4 ml. Complex cyst. Bladder / Kidneys: bilateral ureteroceles, hx bilateral duplex ureters. Cul de Sac / Pouch of Jimmy: no free fluid visible. IMPRESSION: Intramural uterine fibroid, dysmenorrhea, AUB, s/p endometrial ablation PLAN: The risks/benefits/alternatives and personal involved for the planned LAVH, bilateral salpingectomy and cystoscopy, possible conversion to open procedure were reviewed with the patient. Her questions were answered to her satisfaction and she desires to proceed. Consent was signed. I reviewed with her postop instructions and expectations. Will plan to do a cystoscopy before hysterectomy as has h/o ureteral duplication but on CT report it is not specified how many ureters or if duplication on one or both sides. I have reviewed and updated past medical and surgical history, medications and allergies Dejon Rachel M.D. Referring Provider: SELF [[id number]] Allergies As of Date: 10/19/2018 Noted Allergy Reaction CONTRAST DYE 06/29/2008 7 - Swelling LANOLIN 08/16/2015 9 - Itching PREDNISONE 06/29/2008 4 - Hives VICODIN (HYDROCODONE-ACETAMINOPHE*09/07/2008 WELLBUTRIN (BUPROPION HCL) 06/29/2008 4 - Hives ZYBAN (BUPROPION (SMOKING DETER)) 06/29/2008 4 - Hives Date Reviewed: 10/19/2018 Reviewed by: Dejon Rachel - Fully Assessed Primary Visit Diagnosis:Abnormal uterine bleeding (AUB) [N93.9] Other Visit Diagnoses:Dysmenorrhea [N94.6] Intramural uterine fibroid [D25.1] Prescriptions as of 10/19/2018 Sig: GABAPENTIN 300 MG CAPSULE as needed. ROSUVASTATIN 20 MG TABLET IBUPROFEN 200 MG TABLET Take 200 mg by mouth every 6 * PERCOCET 5 MG-325 MG TABLET Take one(1) tablet every four* Problem List As Of Date 10/19/2018 Noted Resolved MIXED HYPERLIPIDEMIA [E78.2] INVALID FOR* ANXIETY STATE NOS [F41.1] INVALID FOR* Cervical high risk HPV (human papillomavirus) t*INVALID FOR* Status post endometrial ablation [Z98.890] INVALID FOR* Myopia - Both Eyes [H52.10] INVALID FOR* Regular astigmatism - Right Eye [H52.229] INVALID FOR* Presbyopia - Both Eyes [H52.4] INVALID FOR* Hordeolum internum of left lower eyelid [H00.02*INVALID FOR* Encounter Status:Closed by DEJON RACHEL MD on 10/19/18 CNCO Observed: 09/16/2018 Status: COMPLETED Source: [place] 12:00 AM [facility] REPOSITORY Letter Text Dejon Rachel M.D. [facility] [address] [place], [place] [address] 09/16/2018 Helena Guzman [address] [facility] [address] Dear Helena, This letter is to confirm with you the dates and times of your upcoming surgery. You should have received a telephone call notifying you of this information. Surgery 10/29/18 at [facility]. You will receive a call the day prior to surgery with your arrival time. Pre-operative appointment at Dr. Rachel's office is scheduled on 10/19/18 @ 4:20 p.m. [facility] will contact you by phone on 10/22/18 @ 3:00 p.m. for pre-admission testing. 2 week post-operative appointment at Dr. Rachel's office is scheduled on 11/06/18 @ 11:10 a.m. In addition, we will do a precertification approximately 1 week prior to your surgery. This means we will give your insurance company the medical information they need to make a predetermination. This is not a guarantee of payment and you will need to call your insurance company to verify benefits and coverage. If you are self-pay and/or receive [facility] Financial Assistance, and are having surgery at [facility], please call them at [phone] to make financial arrangements. We will only call you if there is a problem. If you have any questions, please feel free to call us at the phone number above. We appreciate your confidence in choosing the [facility] for your medical care and we look forward to seeing you at your next appointment. Thank you, [facility] CNPN Observed: 07/21/2018 Status: COMPLETED Source: [place] 12:00 AM [facility] REPOSITORY Telephone (WOOB) HELENA GUZMAN ([id number]) 1970 F Date Time Provider Department 07/21/18 DEJON RACHEL WOOB During your visit today, we recorded the following information about you: Lynne Puentes RN 07/21/2018 2:27 PM Signed Received faxed CT abdominal/pelvic scan results from 2011 from [facility]. I spoke to Dr. Michael Rogers's office, a urologist in [place]. Patient was never seen in office. Results to RR to review. Lynne Puentes RN 07/21/2018 3:[address] scan reviewed by RR. Records placed in back of suite [address] binder to save for patient's pre-op when it gets scheduled. Lynne Puentes RN Allergies As of Date: 07/21/2018 Noted Allergy Reaction CONTRAST DYE 06/29/2008 7 - Swelling LANOLIN 08/16/2015 9 - Itching PREDNISONE 06/29/2008 4 - Hives VICODIN (HYDROCODONE-ACETAMINOPHE*09/07/2008 WELLBUTRIN (BUPROPION HCL) 06/29/2008 4 - Hives ZYBAN (BUPROPION (SMOKING DETER)) 06/29/2008 4 - Hives Date Reviewed: 07/20/2018 Reviewed by: Dejon Rachel - Fully Assessed Reason for Visit: Received Outside Medical Records [[id number]] Prescriptions as of 07/21/2018 Sig: GABAPENTIN 300 MG CAPSULE as needed. ROSUVASTATIN 20 MG TABLET IBUPROFEN 200 MG TABLET Take 200 mg by mouth every 6 * PERCOCET 5 MG-325 MG TABLET Take one(1) tablet every four* Problem List As Of Date 07/21/2018 Noted Resolved MIXED HYPERLIPIDEMIA [E78.2] INVALID FOR* ANXIETY STATE NOS [F41.1] INVALID FOR* Cervical high risk HPV (human papillomavirus) t*INVALID FOR* Status post endometrial ablation [Z98.890] INVALID FOR* Myopia - Both Eyes [H52.10] INVALID FOR* Regular astigmatism - Right Eye [H52.229] INVALID FOR* Presbyopia - Both Eyes [H52.4] INVALID FOR* Hordeolum internum of left lower eyelid [H00.02*INVALID FOR* Encounter Status:Closed by LYNNE PUENTES RN on 07/21/18 CNOV Observed: 07/20/2018 Status: COMPLETED Source: [place] 11:00 AM [facility] REPOSITORY Office Visit (WOOB) HELENA GUZMAN ([id number]) 1970 F Date Time Provider Department 07/20/18 11:00 AM DEJON RACHEL During your visit today, we recorded the following information about you: Blood pressure Weight 136/78 78 kg Dejon Rachel MD 07/20/2018 1:54 PM Signed 47 year old who presents with complaints of AUB. Had encometrial ablation 2007 for heavy menses. No bleeding until last year and now bleeds more days a month than not. Has cramping w/ it. Takes ibuprofen w/ relief. Bleeding isn't really heavy as before, changes protection q 3 hrs at heaviest. Darker brown color. Cramping worse on days w/ bleeding. Cramping and bleeding after intercourse. 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 LMP: No LMP recorded. Patient has had an ablation. No regular menstrual cycles since ablatoin. Denies any increase in hot flashes. No vaginal dryness. Heavy bleeding? No Intermenstrual bleeding/spotting? Yes Dysmenorrhea? Yes History of fibroids? Yes History of endometrial polyps? No Sexually active: Yes History of STDS: None Patient concerns for STD exposure: No. Pain with intercourse: Yes- some deep bumperPostcoital bleeding: Yes Last Pap: 2018 normal HPV: negative PAST MEDICAL HISTORY Diagnosis Date - Anxiety state, unspecified 06/29/2008 - Migraine headache - Mixed hyperlipidemia 06/29/2008 - Spinal stenosis, other than cervical PAST SURGICAL HISTORY Procedure Laterality Date - DELIVERY ONLY , low cervical x 3 - LIGATE FALLOPIAN TUBE Tubal ligation - SULEIMAN 2007 - PAST SURGICAL HISTORY OF back surgery - REMOVAL OF TONSILS,<10 Y/O Tonsillectomy FAMILY HISTORY Problem Relation Age of Onset - Diabetes Mother - Hypertension Mother - Cataract Mother - Diabetes Father - Hypertension Father - Heart Father - Blindness Father 20 some type of disease but not sure what at the time. - other (Other) Father - Cervical Cancer Sister - Diabetes Maternal Grandmother - Diabetes Maternal Grandfather - Cancer Maternal Grandfather from lung cancer - Diabetes Paternal Grandmother - Cancer Paternal Grandfather throat SOCIAL HISTORY Social History Substance Use Topics - Smoking status: Current Every Day Smoker Packs/day: 1.00 Years: 20.00 Types: Cigarettes - Smokeless tobacco: Never Used - Alcohol use Yes Comment: rare REVIEW OF SYSTEMS No recent weight gain or weight loss. Abdomen: No abdominal pain, nausea, vomiting, diarrhea, or constipation. No bloating, early satiety, indigestion, or increased flatulence. Bladder: No dysuria, gross hematuria, some urgency, gets up 3 times a night. No dysuria. Some MIGUELANGEL. Is doing kegels now EXAM: BP 136/78 Wt 172 lb (78.0kg) GENERAL: pleasant, female in no apparent distress ABDOMEN: soft, non-tender, no hernia, no masses, rebound Absent and guarding Absent PELVIC: Normal external genitalia, normal mons pubis, normal labia minora normal labia majora. Normal introitus. Normal perineal body. Normal hair distribution pattern. Vagina with pink rugae, small amount of brown tinged mucous discharge. No vaginal lesions. No significant cystocele or rectocele. Cervix is smooth, closed, nonfriable. No cervical lesions noted. Mount of brown tinged mucous discharge at the cervical os. BIMANUAL: Uterus is mildly enlarged, boggy, no significant tenderness. No adnexal masses or tenderness. Uterus is midline. ASSESSMENT: Abnormal uterine bleeding, status post endometrial ablation, dysmenorrhea, intramural uterine fibroid PLAN: Risks benefits and alternatives to various therapeutic options for abnormal uterine bleeding in a perimenopausal patient after an endometrial ablation were reviewed. Patient declines Depo-Provera or other hormonal options. I discussed with her she can use NSAIDs and heat as needed for pain control and this may help decrease the bleeding somewhat until we are able to arrange for definitive therapy in the form of hysterectomy. She understands that hysterectomy will resolve her vaginal bleeding and we reviewed short and long-term complications associated with hysterectomy. She did understands that this may not permanently resolve pelvic pain and cramping as is often multifactorial. 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 We will try to obtain her previous CAT scan of the abdomen and pelvis. In addition, she had a previous cystoscopy and a urologist office. We'll try to obtain records from that as well. (Dr. Rogers). We will plan to cystoscopy the patient before and after the hysterectomy. She is a good candidate for laparoscopic-assisted vaginal hysterectomy with bilateral salpingectomy and cystoscopy. We attempted an endometrial biopsy today, but this was unsuccessful. Dejon Rachel MD Helena Guzman is a 47 year old female who presents today for an endometrial biopsy for abnormal uterine bleeding. test: n/a(s/p tubal and endometrial ablation) UNIVERSAL PROTOCOL / SAFETY CHECKLIST Procedure to be performed: EMB Sign in Communication: Completed Time Out: Team Confirms the Correct Patient, Correct Procedure, Correct Site and Site Marking, Correct Position (if applicable), Prep and Dry Time (if applicable). Time: 1118 Affirmation of Time Out: YES Sign Out Discussion: Completed Dejon Rachel M.D. PROCEDURE: EXTERNAL GENITALIA: Normal in appearance without lesions VAGINA: Normal in appearance without lesions BIOPSY: Speculum placed into the vagina with excellent visualization of the cervix. Cervix cleaned with betadine. Anterior lip of cervix grasped with single toothed tenaculum. Attempted to insert pipelle, unable to pass internal cervical os Procedure Summary: Patient tolerated procedure well. ASSESSMENT: abnormal uterine bleeding, cervical stenosis PLAN: unsuccessful EMB due to cervical stenosis, s/p enedometrial ablation Dejon Rachel MD [facility] 07/20/2018 11:05 AM Signed YOUR RECOVERY After your biopsy you may have: - Vaginal bleeding (less than a normal menstrual period) - Mild cramping Do NOT put anything in the vagina for 1 week after your endometrial biopsy. This includes sex, tampons, and douches. If you have any discomfort, you may take an over the counter pain medication (motrin, advil, ibuprofen, tylenol, etc). If this does not relieve your discomfort, contact your doctor's office for a prescription strength pain medication. It is okay to wear a sanitary pad until the discharge and spotting stops. RISKS Although problems seldom occur with endometrial biopsies, there can be some complications. You may feel faint during and shortly after the procedure as well as have some bleeding after the procedure. There is also a risk of infection after the procedure. These complications are rare and can be easily treated. You should contact you doctor is you have any of the following: - Heavy bleeding (more than your normal period) - Bleeding with clots - Severe abdominal pain - Fever (more than 100.4F) - Foul smelling vaginal discharge RESULTS We will have the results of your biopsy in 1-2 weeks. If you do not hear the results of your biopsy after 2 weeks, please contact your physicians office for the results. If you have any additional questions, please contact your doctor's office. Referring Provider: ALICIA CASTRO ([facility]) [[id number]] Allergies As of Date: 07/20/2018 Noted Allergy Reaction CONTRAST DYE 06/29/2008 7 - Swelling LANOLIN 08/16/2015 9 - Itching PREDNISONE 06/29/2008 4 - Hives VICODIN (HYDROCODONE-ACETAMINOPHE*09/07/2008 WELLBUTRIN (BUPROPION HCL) 06/29/2008 4 - Hives ZYBAN (BUPROPION (SMOKING DETER)) 06/29/2008 4 - Hives Date Reviewed: 07/20/2018 Reviewed by: Dejon Rachel - Fully Assessed Reason for Visit: Consult [173] Cmt: hysterectomy consult Primary Visit Diagnosis:Abnormal uterine bleeding (AUB) [N93.9] Other Visit Diagnosis:Pelvic pain in female [R10.2] Prescriptions as of 07/20/2018 Sig: GABAPENTIN 300 MG CAPSULE as needed. ROSUVASTATIN 20 MG TABLET IBUPROFEN 200 MG TABLET Take 200 mg by mouth every 6 * PERCOCET 5 MG-325 MG TABLET Take one(1) tablet every four* Problem List As Of Date 07/20/2018 Noted Resolved MIXED HYPERLIPIDEMIA [E78.2] INVALID FOR* ANXIETY STATE NOS [F41.1] INVALID FOR* Cervical high risk HPV (human papillomavirus) t*INVALID FOR* Status post endometrial ablation [Z98.890] INVALID FOR* Myopia - Both Eyes [H52.10] INVALID FOR* Regular astigmatism - Right Eye [H52.229] INVALID FOR* Presbyopia - Both Eyes [H52.4] INVALID FOR* Hordeolum internum of left lower eyelid [H00.02*INVALID FOR* Other instructions from your clinician: YOUR RECOVERY After your biopsy you may have: - Vaginal bleeding (less than a normal menstrual period) - Mild cramping Do NOT put anything in the vagina for 1 week after your endometrial biopsy. This includes sex, tampons, and douches. If you have any discomfort, you may take an over the counter pain medication (motrin, advil, ibuprofen, tylenol, etc). If this does not relieve your discomfort, contact your doctor's office for a prescription strength pain medication. It is okay to wear a sanitary pad until the discharge and spotting stops. RISKS Although problems seldom occur with endometrial biopsies, there can be some complications. You may feel faint during and shortly after the procedure as well as have some bleeding after the procedure. There is also a risk of infection after the procedure. These complications are rare and can be easily treated. You should contact you doctor is you have any of the following: - Heavy bleeding (more than your normal period) - Bleeding with clots - Severe abdominal pain - Fever (more than 100.4F) - Foul smelling vaginal discharge RESULTS We will have the results of your biopsy in 1-2 weeks. If you do not hear the results of your biopsy after 2 weeks, please contact your physicians office for the results. If you have any additional questions, please contact your doctor's office. Encounter Status:Closed by DEJON RACHEL MD on 07/20/18 PROGRESS Observed: 07/20/2018 Status: COMPLETED Source: [place] 10:35 AM [facility] REPOSITORY O ID: [id number] Author: Dejon Rachel Service: (none) Author Type: Physician Type: Progress Notes Filed: 07/20/2018 1:54 PM Note Text: 47 year old who presents with complaints of AUB. Had encometrial ablation 2007 for heavy menses. No bleeding until last year and now bleeds more days a month than not. Has cramping w/ it. Takes ibuprofen w/ relief. Bleeding isn't really heavy as before, changes protection q 3 hrs at heaviest. Darker brown color. Cramping worse on days w/ bleeding. Cramping and bleeding after intercourse. 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 LMP: No LMP recorded. Patient has had an ablation. No regular menstrual cycles since ablatoin. Denies any increase in hot flashes. No vaginal dryness. Heavy bleeding? No Intermenstrual bleeding/spotting? Yes Dysmenorrhea? Yes History of fibroids? Yes History of endometrial polyps? No Sexually active: Yes History of STDS: None Patient concerns for STD exposure: No. Pain with intercourse: Yes- some deep bumperPostcoital bleeding: Yes Last Pap: 2017 normal HPV: negative PAST MEDICAL HISTORY Diagnosis Date - Anxiety state, unspecified 06/29/2008 - Migraine headache - Mixed hyperlipidemia 06/29/2008 - Spinal stenosis, other than cervical PAST SURGICAL HISTORY Procedure Laterality Date - DELIVERY ONLY , low cervical x 3 - LIGATE FALLOPIAN TUBE Tubal ligation - NOVASURE 2007 - PAST SURGICAL HISTORY OF back surgery - REMOVAL OF TONSILS,<12 Y/O Tonsillectomy FAMILY HISTORY Problem Relation Age of Onset - Diabetes Mother - Hypertension Mother - Cataract Mother - Diabetes Father - Hypertension Father - Heart Father - Blindness Father 20 some type of disease but not sure what at the time. - other (Other) Father - Cervical Cancer Sister - Diabetes Maternal Grandmother - Diabetes Maternal Grandfather - Cancer Maternal Grandfather from lung cancer - Diabetes Paternal Grandmother - Cancer Paternal Grandfather throat SOCIAL HISTORY Social History Substance Use Topics - Smoking status: Current Every Day Smoker Packs/day: 1.00 Years: 20.00 Types: Cigarettes - Smokeless tobacco: Never Used - Alcohol use Yes Comment: rare REVIEW OF SYSTEMS No recent weight gain or weight loss. Abdomen: No abdominal pain, nausea, vomiting, diarrhea, or constipation. No bloating, early satiety, indigestion, or increased flatulence. Bladder: No dysuria, gross hematuria, some urgency, gets up 3 times a night. No dysuria. Some MIGUELANGEL. Is doing kegels now EXAM: BP 136/78 Wt 172 lb (78.0kg) GENERAL: pleasant, female in no apparent distress ABDOMEN: soft, non-tender, no hernia, no masses, rebound Absent and guarding Absent PELVIC: Normal external genitalia, normal mons pubis, normal labia minora normal labia majora. Normal introitus. Normal perineal body. Normal hair distribution pattern. Vagina with pink rugae, small amount of brown tinged mucous discharge. No vaginal lesions. No significant cystocele or rectocele. Cervix is smooth, closed, nonfriable. No cervical lesions noted. Mount of brown tinged mucous discharge at the cervical os. BIMANUAL: Uterus is mildly enlarged, boggy, no significant tenderness. No adnexal masses or tenderness. Uterus is midline. ASSESSMENT: Abnormal uterine bleeding, status post endometrial ablation, dysmenorrhea, intramural uterine fibroid PLAN: Risks benefits and alternatives to various therapeutic options for abnormal uterine bleeding in a perimenopausal patient after an endometrial ablation were reviewed. Patient declines Depo-Provera or other hormonal options. I discussed with her she can use NSAIDs and heat as needed for pain control and this may help decrease the bleeding somewhat until we are able to arrange for definitive therapy in the form of hysterectomy. She understands that hysterectomy will resolve her vaginal bleeding and we reviewed short and long-term complications associated with hysterectomy. She did understands that this may not permanently resolve pelvic pain and cramping as is often multifactorial. 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 We will try to obtain her previous CAT scan of the abdomen and pelvis. In addition, she had a previous cystoscopy and a urologist office. We'll try to obtain records from that as well. (Dr. Rogers). We will plan to cystoscopy the patient before and after the hysterectomy. She is a good candidate for laparoscopic-assisted vaginal hysterectomy with bilateral salpingectomy and cystoscopy. We attempted an endometrial biopsy today, but this was unsuccessful. Dejon Rachel MD Helena Guzman is a 47 year old female who presents today for an endometrial biopsy for abnormal uterine bleeding. test: n/a(s/p tubal and endometrial ablation) UNIVERSAL PROTOCOL / SAFETY CHECKLIST Procedure to be performed: EMB Sign in Communication: Completed Time Out: Team Confirms the Correct Patient, Correct Procedure, Correct Site and Site Marking, Correct Position (if applicable), Prep and Dry Time (if applicable). Time: 1118 Affirmation of Time Out: YES Sign Out Discussion: Completed Dejon Rachel M.D. PROCEDURE: EXTERNAL GENITALIA: Normal in appearance without lesions VAGINA: Normal in appearance without lesions BIOPSY: Speculum placed into the vagina with excellent visualization of the cervix. Cervix cleaned with betadine. Anterior lip of cervix grasped with single toothed tenaculum. Attempted to insert pipelle, unable to pass internal cervical os Procedure Summary: Patient tolerated procedure well. ASSESSMENT: abnormal uterine bleeding, cervical stenosis PLAN: unsuccessful EMB due to cervical stenosis, s/p enedometrial ablation Dejon Rachel MD PROGRESS Observed: 06/05/2018 Status: COMPLETED Source: [place] 1:50 PM [facility] [place] REPOSITORY O ID: [id number] Author: Deyanira Colon II Service: (none) Author Type: COOK ICE CREAM Type: Progress Notes Filed: 06/05/2018 1:54 PM Note Text: ASSESSMENT/PLAN: 1. Hordeolum internum of left lower eyelid - ICD9: 373.12, ICD10: H00.025 Recommend start use of Keflex 500 mg po twice a day x 10 days. Polytrim drops 1 gt both eyes four times a day X 1 week. Continue warm compresses twice a day. Recheck as needed. Instruct patient to immediately report any change in condition outside of expected and discussed symptoms. I have confirmed and edited as necessary the relevant ophthalmic history, review of systems, surgical history, and ophthalmological examination findings as obtained by the ophthalmic technical staff. I have seen and examined Helena Tariq Guzman. I have discussed the examination findings, diagnosis, and treatment options with the patient and/or the patient's family. I have also reviewed and agree with the assessment and plan as stated above and agree with all its relevant components. I gave the patient the opportunity to ask questions about the findings, diagnosis, and treatment options. Deyanira Colon, II, OD CNCO Observed: 04/22/2018 Status: COMPLETED Source: [place] 12:00 AM [facility] REPOSITORY Letter Text Alicia Castro CNP [address] [id number] Helena Guzman [address] [facility] [address] 04/22/2018 [facility]: [id number] Dear Helena, We are pleased to inform you that your recent Pap Test was within normal limits. Because Pap tests are so effective in the early detection of cervical cancer, you are encouraged to continue having the test at regular intervals. You will be due for a 1 year Gynecological Exam after this date . If you have any questions regarding the above information, do not hesitate to call our office at between the hours of 8:00 a.m. and 5:00 p.m. Sincerely, Alicia Castro CNP [facility] Observed: 04/16/2018 Status: COMPLETED Source: [place] 5:10 PM [facility] REPOSITORY HNO ID: [id number] Author: Mammography Coordinator Service: (none) Author Type: Physician Type: Letter Filed: 04/20/2018 11:32 PM Note Text: April 16, 2018 PID: [id number] Helena Guzman [address] [place] [address] Dear Ms. Guzman, We are pleased to inform you that the results of your recent breast imaging exam on 04/16/2018 are normal. Early detection of cancer is very important. We also understand recommendations regarding breast cancer screening are controversial. Please discuss with your primary care provider which strategy is best for you and whether a mammogram is right for you. Your imaging studies and report will be kept on file at [facility] as part of your permanent medical record and are available for your continuing care. Thank you for allowing us to help in meeting your health care needs. Sincerely, Dr. Betancur Interpreting Radiologist [facility] (Normal over 40) HPV W/GENOTYPE Collected: 04/16/2018 Status: F Source: [place] 2:27 PM [facility] REPOSITORY TYPE CODE TESTS RESULT OUT OF REFERENCE UNITS RANGE LAB HPVT16 HPV HighRisk Negative for Type 16 HPV DNA high risk type 16 by PCR. LAB HPVT18 HPV HighRisk Negative for Type 18 HPV DNA high risk type 18 by PCR. LAB HPVHRO HPV HighRisk Negative for Other HPV DNA high risk types: 31,33,35,39,45 ,51,52,56,58,5 9,66,68 by PCR. Result Comment: This test was developed and its performance characteristics determined by [facility] [place] (-[facility]). It has not been cleared or approved by the FDA. [facility] is regulated under CLIA as qualified to perform high-complexity testing. This test is used for clinical purposes. It should not be regarded as inv estigational or for research. Performed By: #### HPVHRR #### [facility] [address] [place], [place] [address] CYTOLOGY Observed: 04/16/2018 Status: C Source: [place] 2:27 PM [facility] REPOSITORY ADDITIONAL PROCEDURES PRESENT Specimen originated from [facility] Specimen #: [id number] Submitting Physician: ALICIA CASTRO CNP SPECIMEN SUBMITTED A: CERVICAL, SCREENING, FLUID FINAL DIAGNOSIS A. CERVICAL, SCREENING, FLUID Satisfactory for interpretation. Negative for intraepithelial lesion or malignancy. This specimen has been analyzed by the ThinPrep Imaging System, an automated imaging and review system, which assists the laboratory in evaluating cells on ThinPrep Pap tests. Following automated imaging, selected boone from every slide are reviewed by a veneer stapler. KATIE Ricardo(ASCP) (Electronic Signature) ADDITIONAL PROCEDURE(S) HUMAN PAPILLOMA VIRUS Date Ordered: 04/20/2018 Date Reported: 04/21/2018 Procedure Results and Interpretation Negative for HPV DNA high risk type 16 by PCR. Negative for HPV DNA high risk type 18 by PCR. Negative for HPV DNA high risk types: 31,33,35,39,45,51,52,56,58,59,66,68 by PCR. This test was developed and its performance characteristics determined by [facility] [place] ([facility]). It has not been cleared or approved by the FDA. -[facility] is regulated under CLIA as qualified to perform high-complexity testing. This test is used for clinical purposes. It should not be regarded as investigational or for research. CLINICAL DATA ROUTINE EXAM, HPV Testing: Yes, automatic HPV patients over 30 Date of Last Menstrual Period: Ablation STAINS A: CERVICAL, SCREENING, FLUID THIN PREP EMBOSSING CALENDER OPERATOR Lynne Felix M.D., It Teacher Date of Report: 04/21/2018 Date of Procedure: 04/16/2018 Date of Receipt: 04/20/2018 Submitted by: ALICIA CASTRO CNP Location: [facility] Diagnostic interpretation performed at [facility], [address] [facility] [address]. The Pap Smear is a screening test for cervical cancer. False negative results occur with all screening tests, emphasizing the need for rescreening at recommended intervals, and clinical correlation. CNOV Observed: 04/16/2018 Status: COMPLETED Source: [place] 2:00 PM [facility] [place] REPOSITORY Office Visit (WOOB) HELENA GUZMAN ([id number]) 1970 F Date Time Provider Department 04/16/18 2:00 PM ALICIA CASTRO (RESEARCH TEST ENGINE OPERATOR) WOOB During your visit today, we recorded the following information about you: Blood pressure Weight Height 128/80 80.7 kg 1.626 m Alicia Castro APRN.CNP 04/16/2018 5:08 PM Signed Helena Potter Thomas is a 47 year old who presents for her annual gynecologic exam. Increased bleeding - 2007 Menses: 2007 - has had 2 days of cyclic brown bleeding since ablation. Has been having small bright red bleeding 2-3 days/week for past 4-5 months. Contraception: tubal ligation HPV vaccine: No Last Pap: 2013 ASCUS HPV: 2012 - positive History of abnormal pap: Yes Last mammogram: today, pending Sexually active: Yes Patient concerns for STD exposure: No. Time with current partner: 6 years Pain with intercourse: No Postcoital bleeding: Yes Hot flashes: Yes Night sweats: Yes Exercise: none Diet: heart healthy diet Seatbelt use: Yes Obstetric History T0 L3 SAB0 TAB0 Ectopic0 Multiple0 Live Births0 PAST MEDICAL HISTORY Diagnosis Date - Anxiety state, unspecified 06/29/2008 - Migraine headache - Mixed hyperlipidemia 06/29/2008 - Spinal stenosis, other than cervical PAST SURGICAL HISTORY Procedure Laterality Date - DELIVERY ONLY , low cervical x 3 - LIGATE FALLOPIAN TUBE Tubal ligation - PAST SURGICAL HISTORY OF back surgery - REMOVAL OF TONSILS,<10 Y/O Tonsillectomy FAMILY HISTORY Problem Relation Age of Onset - Diabetes Mother - Hypertension Mother - Cataract Mother - Diabetes Father - Hypertension Father - Heart Father - Blindness Father 20 some type of disease but not sure what at the time. - Other [OTHER] Father - Cervical Cancer Sister - Diabetes Maternal Grandmother - Diabetes Maternal Grandfather - Cancer Maternal Grandfather decesed from lung cancer - Diabetes Paternal Grandmother - Cancer Paternal Grandfather throat SOCIAL HISTORY Social History Substance Use Topics - Smoking status: Current Every Day Smoker Packs/day: 1.00 Years: 20.00 Types: Cigarettes - Smokeless tobacco: Never Used - Alcohol use Yes Comment: rare REVIEW OF SYSTEMS Abdomen: No abdominal pain, nausea, vomiting, diarrhea, or constipation. No bloating, early satiety, indigestion, or increased flatulence. Bladder: No dysuria, gross hematuria, urinary frequency, urinary urgency. Mild stress incontinence. Breast: No breast lumps, nipple d/c, overlying skin changes, redness or skin retraction. Allergies and current medication updated:Yes EXAM: BP 128/80 Ht 5' 4 (1.63m) Wt 178 lb (80.7kg) BMI 30.54 kg/(m2). GENERAL: pleasant, female in no apparent distress HEENT: Normocephalic, atraumatic, mucus membranes moist and no lesions NECK: Supple, full range of motion, no adenopathy and thyroid normal DERMATOLOGY: Normal, without lesions, non-icteric and non-hirsute BREAST: soft, non-tender, symmetric, no dominant mass, normal nipple-areolar complex, no lymphadenopathy and no nipple discharge CHEST: Normal inspiratory effort ABDOMEN: soft, no masses and Mild tenderness in LLQ PELVIC: external genitalia normal, normal Bartholin's glands, urethra, [place]'s glands, no vulvar lesions, no cervical lesions, good vaginal support, physiologic discharge present, normal appearing perineal body and perianal region, nabothian cyst BIMANUAL: uterus normal size, shape and consistency, no adnexal masses and Mild tenderness RECTOVAGINAL: deferred. NEURO: alert and oriented x3,exam grossly non-focal EXTREMITIES: normal ASSESSMENT/PLAN: 1) Health maintenance: Pap done with HPV. Nutrition, exercise and routine health maintenance exams reviewed. Calcium/Vitamin D supplementation information provided. 2) Contraception: tubal ligation. Contraceptive options reviewed and information provided. 3) STD screening: Declined STD check. 5. Stress incontinence - ICD9: [id number], ICD10: N39.3 - Mild - Given verbal and written instructions on Kegel exercises 6. Pelvic pain in female - ICD9: 625.9, ICD10: R10.2 - Mild tenderness LLQ on exam - PELVIC US WHI 7. Abnormal uterine bleeding (AUB) - ICD9: 626.9, ICD10: N93.9 - Novasure 2007. small bright red bleeding 2-3 days/week for past 4-5 months. - PELVIC US WHI 8) Will notify of results. Follow up one year or sooner as needed ADDY Verdugo APRN.CNP 04/16/2018 2:30 PM Signed How To Perform Pelvic Floor (Kegel) Exercises These exercises help to strengthen the pelvic floor muscles and can help improve bladder control for women. 1. You should have been instructed in the office how to contract these muscles. At home, you can insert two fingers in the vagina and feel the contraction of these muscles as you squeeze. We call these muscles the ?pelvic floor? because they help support the pelvic organs, especially during coughing and sneezing. Squeezing the pelvic floor while standing feels like you are ?lifting? the area around the vagina, and will interrupt the stream of urine while voiding. Once you are certain which muscles to use, do not exercise while urinating. Make sure you are not bearing down, squeezing your buttocks, or straining abdominally: these are not the muscles to be exercised. You may wish to place hands on your buttock muscles to keep these muscles relaxed while performing the exercises. 2. Squeeze these muscles as hard as you can for a slow count of five, eventually working up to a slow count of ten. Rest for 15 seconds, and then start another contraction. At first. these muscles may feel sore, just as other muscles may feel sore after exercise. 3. You should perform 50 squeezes every day: make sure every squeeze count by fili as hard as you can! Many women try to do these exercises in sets of five or ten at a time. Remind yourself to do these exercises by starting them every time you are waiting at a red light, watching a television commercial, or ?on hold? on the telephone. If you are having trouble concentrating, you may want to set aside a special time to perform sets of pelvic floor exercises. 4. In addition to the long, hard contractions you are doing try doing some ?quick flicks? of these muscles throughout the day. 5. You should be seen in the office after starting these exercises to make sure you are performing the contraction correctly: you may have never known how to contract these muscles before starting pelvic floor exercises, and many patients mistakenly exercise the wrong muscles. If you still feel frustrated about which muscles to use ask us for help. There are physical therapy specialists who work with pelvic floor muscles. 6. Work hard! As with any exercise program, improvement often is related to how faithfully you adhere to your exercise program. Pelvic floor exercises do not have the side effects and expense associated with other treatments for urinary incontinence, and have been known to help with severe stress incontinence. It may take several months to see the full effect of your exercise program: if you are easily discouraged, see your doctor or doctor at regular visits to assess what progress you are making. Techniques to avoid urinary accidents: Empty your bladder regularly and prior to physical activity. Avoid activity that causes leakage, if possible. Avoid or moderate the intake of alcohol and caffeine products. Try to restrict fluids prior to planned activities. Wear appropriate protection. Prevent chronic coughing which can cause a loss of urinary control. Ways to prevent chronic coughing include treating asthma, restricting smoking, and removing allergy-causing agents from your environment. Referring Provider: AKIRA NICHOLS [[id number]] Allergies As of Date: 04/16/2018 Noted Allergy Reaction CONTRAST DYE 06/29/2008 7 - Swelling LANOLIN 08/16/2015 9 - Itching PREDNISONE 06/29/2008 4 - Hives VICODIN (HYDROCODONE-ACETAMINOPHE*09/07/2008 WELLBUTRIN (BUPROPION HCL) 06/29/2008 4 - Hives ZYBAN (BUPROPION (SMOKING DETER)) 06/29/2008 4 - Hives Date Reviewed: 04/16/2018 Reviewed by: Alicia [facility] CenterSeamus Castro - Fully Assessed Reason for Visit: Well Woman [1463] Primary Visit Diagnosis:Encounter for gynecological examination (general) (routine) without abnormal findings [Z01.419] Other Visit Diagnoses:Visit for screening mammogram [Z12.31] Screening for cervical cancer [Z12.4] Encounter for screening for human papillomavirus (HPV) [Z11.51] Stress incontinence [N39.3] Pelvic pain in female [R10.2] Abnormal uterine bleeding (AUB) [N93.9] Order(s):DELVIN SCREENING [[id number]] Order #: [id number] FUTURE PAP FLUID CERVICAL SCREENING [[id number]] Order #: [id number] PELVIC US WHI [[id number]] Order #: [id number]: 1 Prescriptions as of 04/16/2018 Sig: GABAPENTIN 300 MG CAPSULE as needed. ROSUVASTATIN 20 MG TABLET IBUPROFEN 200 MG TABLET Take 200 mg by mouth every 6 * PERCOCET 5 MG-325 MG TABLET Take one(1) tablet every four* Problem List As Of Date 04/16/2018 Noted Resolved MIXED HYPERLIPIDEMIA [E78.2] INVALID FOR* ANXIETY STATE NOS [F41.1] INVALID FOR* Cervical high risk HPV (human papillomavirus) t*INVALID FOR* Status post endometrial ablation [Z98.890] INVALID FOR* Myopia - Both Eyes [H52.10] INVALID FOR* Regular astigmatism - Right Eye [H52.229] INVALID FOR* Presbyopia - Both Eyes [H52.4] INVALID FOR* Other instructions from your clinician: How To Perform Pelvic Floor (Kegel) Exercises These exercises help to strengthen the pelvic floor muscles and can help improve bladder control for women. 1. You should have been instructed in the office how to contract these muscles. At home, you can insert two fingers in the vagina and feel the contraction of these muscles as you squeeze. We call these muscles the ?pelvic floor? because they help support the pelvic organs, especially during coughing and sneezing. Squeezing the pelvic floor while standing feels like you are ?lifting? the area around the vagina, and will interrupt the stream of urine while voiding. Once you are certain which muscles to use, do not exercise while urinating. Make sure you are not bearing down, squeezing your buttocks, or straining abdominally: these are not the muscles to be exercised. You may wish to place hands on your buttock muscles to keep these muscles relaxed while performing the exercises. 2. Squeeze these muscles as hard as you can for a slow count of five, eventually working up to a slow count of ten. Rest for 15 seconds, and then start another contraction. At first. these muscles may feel sore, just as other muscles may feel sore after exercise. 3. You should perform 50 squeezes every day: make sure every squeeze count by fili as hard as you can! Many women try to do these exercises in sets of five or ten at a time. Remind yourself to do these exercises by starting them every time you are waiting at a red light, watching a television commercial, or ?on hold? on the telephone. If you are having trouble concentrating, you may want to set aside a special time to perform sets of pelvic floor exercises. 4. In addition to the long, hard contractions you are doing try doing some ?quick flicks? of these muscles throughout the day. 5. You should be seen in the office after starting these exercises to make sure you are performing the contraction correctly: you may have never known how to contract these muscles before starting pelvic floor exercises, and many patients mistakenly exercise the wrong muscles. If you still feel frustrated about which muscles to use ask us for help. There are physical therapy specialists who work with pelvic floor muscles. 6. Work hard! As with any exercise program, improvement often is related to how faithfully you adhere to your exercise program. Pelvic floor exercises do not have the side effects and expense associated with other treatments for urinary incontinence, and have been known to help with severe stress incontinence. It may take several months to see the full effect of your exercise program: if you are easily discouraged, see your doctor or doctor at regular visits to assess what progress you are making. Techniques to avoid urinary accidents: Empty your bladder regularly and prior to physical activity. Avoid activity that causes leakage, if possible. Avoid or moderate the intake of alcohol and caffeine products. Try to restrict fluids prior to planned activities. Wear appropriate protection. Prevent chronic coughing which can cause a loss of urinary control. Ways to prevent chronic coughing include treating asthma, restricting smoking, and removing allergy-causing agents from your environment. Medications Discontinued During This Encounter ATENOLOL ORAL 04/16/2018 Class: Historical Med Route: ORAL Sig: Take 1 tablet by mouth once daily. Disc: Reason for discontinue is not on file. pravastatin 20 mg tablet 04/16/2018 Class: Historical Med Route: ORAL Sig: Take 20 mg by mouth once daily. Disc: Reason for discontinue is not on file. oxybutynin XL 5 mg 24 hr tablet 30 t* 0 01/11/2014 04/16/2018 Route: ORAL Sig: Take 1 tablet by mouth once daily. Disc: Reason for discontinue is not on file. Tizanidine HCl 4 mg ORAL capsule 0 11/07/2011 04/16/2018 Class: Historical Med Route: ORAL Sig: Take 1 capsule by mouth three times daily. Disc: Reason for discontinue is not on file. Disposition: Return in 1 year (on 04/16/2019) for Annual Exam. Follow-up and Disposition History Recorded Encounter Status:Closed by ALICIA CASTRO on 04/16/18 PROGRESS Observed: 04/16/2018 Status: COMPLETED Source: [place] 1:52 PM [facility] MAIN [place] REPOSITORY O ID: [id number] Author: Alicia (Estrada) Matthew Service: (none) Author Type: Nurse Practitioner Type: Progress Notes Filed: 04/16/2018 5:08 PM Note Text: Helena Guzman is a 47 year old who presents for her annual gynecologic exam. Increased bleeding - Augasure 2007 Menses: Novasure 2007 - has had 2 days of cyclic brown bleeding since ablation. Has been having small bright red bleeding 2-3 days/week for past 4-5 months. Contraception: tubal ligation HPV vaccine: No Last Pap: 2013 ASCUS HPV: 2011 - positive History of abnormal pap: Yes Last mammogram: today, pending Sexually active: Yes Patient concerns for STD exposure: No. Time with current partner: 6 years Pain with intercourse: No Postcoital bleeding: Yes Hot flashes: Yes Night sweats: Yes Exercise: none Diet: heart healthy diet Seatbelt use: Yes Obstetric History T0 L3 SAB0 TAB0 Ectopic0 Multiple0 Live Births0 PAST MEDICAL HISTORY Diagnosis Date - Anxiety state, unspecified 06/29/2008 - Migraine headache - Mixed hyperlipidemia 06/29/2008 - Spinal stenosis, other than cervical PAST SURGICAL HISTORY Procedure Laterality Date - DELIVERY ONLY , low cervical x 3 - LIGATE FALLOPIAN TUBE Tubal ligation - PAST SURGICAL HISTORY OF back surgery - REMOVAL OF TONSILS,<12 Y/O Tonsillectomy FAMILY HISTORY Problem Relation Age of Onset - Diabetes Mother - Hypertension Mother - Cataract Mother - Diabetes Father - Hypertension Father - Heart Father - Blindness Father 20 some type of disease but not sure what at the time. - Other [OTHER] Father - Cervical Cancer Sister - Diabetes Maternal Grandmother - Diabetes Maternal Grandfather - Cancer Maternal Grandfather decesed from lung cancer - Diabetes Paternal Grandmother - Cancer Paternal Grandfather throat SOCIAL HISTORY Social History Substance Use Topics - Smoking status: Current Every Day Smoker Packs/day: 1.00 Years: 20.00 Types: Cigarettes - Smokeless tobacco: Never Used - Alcohol use Yes Comment: rare REVIEW OF SYSTEMS Abdomen: No abdominal pain, nausea, vomiting, diarrhea, or constipation. No bloating, early satiety, indigestion, or increased flatulence. Bladder: No dysuria, gross hematuria, urinary frequency, urinary urgency. Mild stress incontinence. Breast: No breast lumps, nipple d/c, overlying skin changes, redness or skin retraction. Allergies and current medication updated:Yes EXAM: BP 128/80 Ht 5' 4 (1.63m) Wt 178 lb (80.7kg) BMI 30.54 kg/(m2). GENERAL: pleasant, female in no apparent distress HEENT: Normocephalic, atraumatic, mucus membranes moist and no lesions NECK: Supple, full range of motion, no adenopathy and thyroid normal DERMATOLOGY: Normal, without lesions, non-icteric and non-hirsute BREAST: soft, non-tender, symmetric, no dominant mass, normal nipple-areolar complex, no lymphadenopathy and no nipple discharge CHEST: Normal inspiratory effort ABDOMEN: soft, no masses and Mild tenderness in LLQ PELVIC: external genitalia normal, normal Bartholin's glands, urethra, [place]'s glands, no vulvar lesions, no cervical lesions, good vaginal support, physiologic discharge present, normal appearing perineal body and perianal region, nabothian cyst BIMANUAL: uterus normal size, shape and consistency, no adnexal masses and Mild tenderness RECTOVAGINAL: deferred. NEURO: alert and oriented x3,exam grossly non-focal EXTREMITIES: normal ASSESSMENT/PLAN: 1) Health maintenance: Pap done with HPV. Nutrition, exercise and routine health maintenance exams reviewed. Calcium/Vitamin D supplementation information provided. 2) Contraception: tubal ligation. Contraceptive options reviewed and information provided. 3) STD screening: Declined STD check. 5. Stress incontinence - ICD9: [id number], ICD10: N39.3 - Mild - Given verbal and written instructions on Kegel exercises 6. Pelvic pain in female - ICD9: 625.9, ICD10: R10.2 - Mild tenderness LLQ on exam - PELVIC US WHI 7. Abnormal uterine bleeding (AUB) - ICD9: 626.9, ICD10: N93.9 - Novasure 2008. small bright red bleeding 2-3 days/week for past 4-5 months. - PELVIC US WHI 8) Will notify of results. Follow up one year or sooner as needed Alicia Castro APRN.RESEARCH TEST ENGINE OPERATOR [facility] SCREENING Observed: 04/16/2018 Status: F Source: [place] 1:52 PM [facility] MAIN CAMP[facility] REPOSITORY * * *Final Report* * * DATE OF EXAM: Apr 16 2018 1:52PM [facility] 0581 - [facility] SCREENING / PROCEDURE REASON: screening * * * * Physician Interpretation * * * * RESULT: #[id number] - [facility] SCREENING BILATERAL DIGITAL SCREENING MAMMOGRAM WITH CAD: 04/16/2018 HISTORY: /Screening Mammogram - patient reports NO breast symptoms /Priors available for comparison. RESULT: TECHNIQUE: The study was acquired using full field digital technology and interpreted from soft copy. Current study was also evaluated with a Computer Aided Detection (CAD). Comparison is made to exam dated: 03/21/2017 mammogram - [facility]. There are scattered fibroglandular elements in both breasts. No significant masses, calcifications, or other findings are seen in either breast. There has been no significant interval change. IMPRESSION: NEGATIVE There is no mammographic evidence of malignancy.A 1 year screening mammogram is recommended. Lizzie goodwin/viplu:04/16/2018 17:10:00 Fire Alarm Inspector: Sonal GARCIA)(Pito), [facility] letter sent: Normal over 40 Mammogram BI-RADS: 1 Negative Medical Director Of Hospice: Vipul Transcribe Date/Time: Apr 16 2018 1:48P Dictated by: LIZZIE BETANCUR MD This examination was interpreted and the report reviewed and electronically signed by: LIZZIE BETANCUR MD on Apr 16 2018 5:10PM EST [id number] PROGRESS Observed: 12/29/2017 Status: COMPLETED Source: [place] 10:54 AM CLINIC MAIN CAMPUS REPOSITORY HNO ID: [id number] Author: Maame Colon Service: (none) Author Type: COOK ICE CREAM Type: Progress Notes Filed: 12/29/2017 10:57 AM Note Text: ASSESSMENT/PLAN: 1. Myopia of both eyes - ICD9: 367.1, ICD10: H52.13 (primary diagnosis) 2. Presbyopia - Both Eyes - ICD9: 367.4, ICD10: H52.4 Continue to wear her correction with the optional update. Recommended yearly exams. Maame Colon, OD The documentation recorded by the scribe accurately reflects the service I personally performed and the decisions made by me. I have confirmed and edited as necessary the relevant ophthalmic history, ROS, and the neuro exam findings as obtained by others. I have seen and examined Helena Haideren. I also have reviewed and agree with the assessment and plan as stated above and agree with all of its relevant components. ALLERGIES ALLERGIES DATE TYPE / CODE NAME / CODE REACTION SEVERITY SOURCE 10/15/2018 Drug Gadolinium-MRI Shortness of Unknown [place] Allergy/416 Contrast breath [facility] [id number]([facility] Medium/[id number] Hospital ED CT) (RXNORM) Repository 10/15/2018 Drug hydrocodone/F0060 Itching Unknown [place] Allergy/416 09590(RXNORM) Community 614553([facility] ED CT) Repository 10/15/2018 Drug bupropion/A821723 Hives Unknown [place] Allergy/416 611(RXNORM) Community 871024([facility] ED CT) Repository 08/16/2015 DRUG LANOLIN ITCHING [facility] INGREDI/419 [place] 487266(SNOM Repository ED CT) 09/07/2008 DRUG/799274 HYDROCODONE-ACETA [facility] 003(SNOMED MINOPHEN [place] CT) Repository 06/29/2008 DRUG CONTRAST DYE SWELLING [facility] INGREDI/419 [facility] [place] 973565(SNOM Repository ED CT) 06/29/2008 DRUG PREDNISONE HIVES [facility] INGREDI/419 [place] 328642(SNOM Repository ED CT) 06/29/2008 DRUG BUPROPION HCL HIVES [facility] INGREDI/419 [place] 558315(SNOM Repository ED CT) 06/29/2008 DRUG/816229 BUPROPION HIVES [facility] 003(SNOMED (SMOKING DETER) [facility] [place] CT) Repository ENCOUNTERS ENCOUNTERS ADMIT/DISCHARGE ACCOUNT ADMITTING ENCOUNTER LOCATION SOURCE NUMBER CLASS 11/06/2018/11/06/19 [id number] [facility] [place] [facility] [place] Repository 10/30/2018/11/02/19 [id number] [facility] [place] [facility] [place] Repository 10/29/2018/10/29/19 [id number] Ambulatory [place] [facility] ing:SDCRoom: Repository AC03 10/19/2018/10/20/19 [id number] Ambulatory [address] [place] Repository 07/20/2018/07/20/20 [id number] Amb[facility] [place] [facility] [place] Repository 06/05/2018/06/05/20 [id number] [facility] [place] [facility] [place] Repository 04/24/2018/04/27/20 [id number] Amb[facility] [place] [facility] [place] Repository 04/16/2018/04/20/20 [id number] Amb[facility] [place] [facility] [place] Repository 04/16/2018/04/16/20 [id number] Ambulatory [place] [facility] [place] Repository 12/29/2017/12/31/19 [id number] Ambulatory [place] [facility] [place] Repository PAYERS PAYERS ENCOUNTER GUARANTOR PAYER SUBSCRIBER SOURCE 10/29/2018 HELENA L Primary HELENA L [place] [id number] Insurance:[facility]: [id number] [id number] [address]: Date:[id number] () [address]DP: 10/29/2018 Secondary NOT GIVENUNK [place] Insurance:SELF PAY [facility] Number: Effective Repository Date:2018-08-10
--- OUTSIDE RECORDS SUMMARY | 2019-01-02 18:55 | XMS RPT_ITS | Summary of Care ---
:1970 Author Organization [facility] Address [address] [place] [address] Phone Care Team Providers Name Role Phone Herminio Nichols MD Primary Care Provider Unavailable Reason for Visit Reason Comments Pain Follow-up Pain Follow-up Encounter Details Date Type Department Care Team Description 08/20/2017 Office Visit [facility] Shayne Abad Primary osteoarthritis Orthopedic & Sports MD [place] [facility] [address] [place] [address] [place] [address] [phone] Allergies Active Allergy Reactions Severity Noted Date Comments Emollient Combination No.61 Hives 08/16/2015 Lanolin Itching 08/16/2015 Mri: Gadolinium-Containing Contrast Media 08/17/2016 Hydrocodone-Acetaminophen Itching 09/07/2008 Bupropion Hcl Hives 06/29/2008 as of this encounter Medications Prescription Sig. Disp. Refills Start Date End Date Status oxyCODONE-acetaminoph Take 1 tablet Active en (PERCOCET) 10-325 by mouth every mg per tablet 6 (six) hours as needed for pain ibuprofen Take 400 mg by Active (ADVIL,MOTRIN) 400 MG mouth every 8 tablet (eight) hours as needed . atenolol (TENORMIN) Take 25 mg by Active 25 MG tablet mouth daily. FLUVIRIN [id number], ADM 0.5ML IM 0 07/29/2017 Active PF, syringe UTD rosuvastatin Take 10 mg by Active (CRESTOR) 10 MG mouth daily. tablet pravastatin Take 40 mg by 08/20/2017 Discontinued (PRAVACHOL) 40 MG mouth nightly tablet tiZANidine (ZANAFLEX) Take 4 mg by 08/20/2017 Discontinued 4 MG capsule mouth 3 (three) times a day as needed for muscle spasms as of this encounter Active Problems Problem Noted Date Primary osteoarthritis of both knees 08/02/2016 Primary osteoarthritis of right knee 08/16/2015 as of this encounter Social History Tobacco Use Types Packs/Day Years Used Date Current Every Day Smoker 1 20 Smokeless Tobacco: Never Used Comments: Medium risk Sex Assigned at Date Recorded Not on file as of this encounter Progress Notes Shayne Abad MD - 08/20/2017 4:34 PM ESTAssociated Order(s): [place] ORT LARGE JOINT ARTHROCENTESISPost-Procedure Diagnose(s): Pain in both knees, unspecified chronicity Dictation on: 08/20/2017 4:36 PM by: SHAYNE ABAD [[id number]] LG Jt Injection/Arthrocentesis Performed by: SHAYNE ABAD Authorized by: SHAYNE ABAD Supporting Documentation: Indications: Pain Procedure Details: Location: Knee Site: L knee Prep: patient was prepped and draped in usual sterile fashion Approach: Lateral Medications: 40 mg triamcinolone acetonide 40 mg/mL Anesthetic used: Lidocaine 1% Anesthetic amount (mL): 3 Aspirate amount (ml): 2 Aspirate: Clear Patient tolerance: Patient tolerated the procedure well with no immediate complications in this encounter Plan of Treatment Pending Results Name Priority Associated Diagnoses Date/Time Joint Routine Primary osteoarthritis of both 08/20/2017 5:05 PM EST Injection/Arthrocentes knees is Health Maintenance Due Date Last Done Comments PAP SMEAR 1970 TETANUS EVERY 10 YR 1970 SEQUENTIAL INFLUENZA VACCINE (#1) 2017 as of this encounter Results XR Knees Bilateral 4+ Views (Specify Views in Comments) (08/20/2017 4:38 PM) Specimen Performing Laboratory [facility] Narrative 4 views each knee reveals moderate to mild degenerative arthritis in the left and very minimal arthritis in the right with medial joint space narrowing in this encounter Visit Diagnoses Diagnosis Primary osteoarthritis of both knees in this encounter Administered Medications Inactive Administered Medications - up to 3 most recent administrations Medication Order MAR Action Action Date Dose Rate Site triamcinolone acetonide (KENALOG-40) Given 08/20/2017 16:37 EST 40 mg injection 40 mg 40 mg, Intra-articular, Starting 08/20/17 at 1637 in this encounter Insurance Payer Benefit Plan / Group Subscriber ID Type Phone Address AETNA AETNA CHOICE POS/POSII/PREMIER CARE/PREMIER [id number] CARE PLUS Work: [address] [place], [place] [id number] [place], Home: [address] [place], [place] [phone] [facility] as of this encounter
== END 2018-10-29 14:29 | disposition home or self-care (01) ==
LOC: SDC 06:30 → AC 06:31
PROVIDERS: Anesthesiology; Family Provider Family Medicine; PCP Family Medicine; Referring Provider Obstetrics & Gynecology; Visit Provider Obstetrics & Gynecology
PROC: 0UT9FZZ Resection of Uterus, Via Natural or Artificial Opening With Percutaneous Endoscopic Assistance (ICD-10-PCS; CPT 58552; principal; 2018-10-29 08:20)
DX: N93.9 Abnormal uterine and vaginal bleeding, unspecified (principal); N94.6 Dysmenorrhea, unspecified; D25.1 Intramural leiomyoma of uterus; N88.8 Other specified noninflammatory disorders of cervix uteri; N87.9 Dysplasia of cervix uteri, unspecified; N88.0 Leukoplakia of cervix uteri; N80.0 Endometriosis of uterus; N83.8 Other noninflammatory disorders of ovary, fallopian tube and broad ligament; E78.2 Mixed hyperlipidemia; F17.210 Nicotine dependence, cigarettes, uncomplicated
CPT/HCPCS: 00840; 58552; 36415; 80076; 81025; 82962; 85027; 85610; 85730; 86850; 86900; 88307; 93005; J7120; J2405